=== PATIENT | male | born 2000 | race Caucasian/White ===

== ENCOUNTER → 2024-12-14 08:45 | Outpatient (BNV) | payer OTHER, SELFPAY | DX: F10.90 Alcohol use, unspecified, uncomplicated (principal); F41.1 Generalized anxiety disorder; F41.8 Other specified anxiety disorders; F32.2 Major depressive disorder, single episode, severe without psychotic features; F12.90 Cannabis use, unspecified, uncomplicated | CPT/HCPCS: 90792; 99499 ==

== ENCOUNTER 2025-01-17 14:17 | Outpatient (REF) | payer OTHER, SELFPAY ==
[2025-01-17 14:46] LABS: MANUAL DIFF FLAG NO
[2025-01-17 15:14] LABS: Basophils Percent Auto 0.6 % (0-2); Eosinophils Percent Auto 0.3 % (0-4); Hematocrit 46.5 % (42.0-52.0); Hemoglobin 15.6 g/dl (14.0-18.0); Imm Gran Abs Auto 0.02 X10*3/uL (0.00-0.03); Imm Gran Pct Auto 0.3 % (0.0-0.4); Lymphocytes Absolute Auto 1.6 X10*3/uL (1.2-4.9); Lymphocytes Percent Auto 24.3 % (20-40); Mean Corpuscular HGB Conc 33.5 g/dl (31.0-36.0); Mean Corpuscular Hemoglobin 29.1 pg (27.0-33.0); Mean Corpuscular Volume 86.8 fL (80.0-98.0); Mean Platelet Volume 10.3 fL (9.4-12.4); Monocytes Absolute Auto 0.4 X10*3/uL (0.1-1.2); Monocytes Percent Auto 5.5 % (2-11); Neutrophils Absolute Auto 4.6 x10*3/uL (2.0-8.3); Platelet Count 225 X10*3/uL (160-400); Red Blood Count 5.36 X10*6/uL (4.60-5.80); Red Cell Distribution Width 13.3 % (11.0-16.0); White Blood Count 6.7 X10*3/uL (4.8-10.8)
[2025-01-17 15:47] LABS: Estimated Average Glucose 94 mg/dL; Hemoglobin A1c % 4.9 % (<6.0); Total Hemoglobin (HGBA1C) 4028.1147 umol/L
[2025-01-17 16:05] LABS: Erythrocyte Sedimentation Rate 2 MM/HR (0-15)
[2025-01-17 16:17] LABS: Alanine Aminotransferase 11 U/L (0-40); Albumin Level 4.7 g/dL (3.5-5.0); Anion Gap 12 (12-20); Aspartate Amino Transferase 19 U/L (5-37); Bilirubin Total 0.6 mg/dL (0.0-1.0); Blood Urea Nitrogen 6 mg/dL (9-16); Calcium 10.1 mg/dL (8.4-10.2); Carbon Dioxide 27 mmol/L (22-29); Chloride 107 mmol/L (96-108); Cholesterol 185 mg/dL (<200); Estimated Glomerular Filt Rate > 60; Gamma Glutamyl Transpeptidase 38 U/L (11-51); Glucose Random 101 mg/dL (60-115); Iron 75 mcg/dL (45-160); Percent Iron Saturation 22 % (15-50); Sodium 142 mmol/L (135-145); Total Iron Binding Capacity 348 mcg/dL (228-428); Total Protein 7.8 g/dL (6.5-8.0); Unsaturated Iron Binding 273 ug/dL
[2025-01-17 16:43] LABS: Thyroid Stimulating Hormone 1.32 uIU/mL (0.32-4.0); Vitamin D 25-OH Total 27.7 ng/mL (>30)
--- OUTSIDE RECORDS SUMMARY | 2025-01-17 17:33 | XMS_ITS ---
Author Organization [facility] Address [address] [place] [address] Care Team Providers Care Cam Maker Name Role Phone Ayanna Yang Primary Care Provider REASON FOR VISIT No Show List Encounters Encounter Location Date Provider Diagnosis [facility] [address] [place] [address] 10/26/2024 Ayanna Yang Plan Of Treatment No Information Progress Notes * Valeriy HINTON LDOB:[birth year] (24 yo M)Acc No.[id number]:10/26/2024 Patient:?Valeriy HINTON :2000???Age:24 Y???Sex:Male Address:[address], [address], [place], [address] * * Date:?
--- OUTSIDE RECORDS SUMMARY | 2025-01-17 17:33 | XMS_ITS | Encounter Summary ---
Author Organization [facility] Address [address] [place] [phone] Phone Care Team Providers Care Coat Hanger Shaper Machine Operator Name Role Phone Aleks Florence MD Primary Care Provider [phone] Reason for Visit * Reason Comments Med Refill Encounter Details Date Type Department Care Team (Late st Contact Info) Description 04/10/2021 Refill [facility] [place] [address] [place] [address] Aleks Florence MD [address] [place] [address] Adolescent depression; Anxiety Social History Tobacco Use Types Packs/Day Years Used Date Smoking Tobacco: Some Days Smokeless Tobacco: Current Comments:chew Alcohol Use Standard Drinks/Week Comments Yes 0 (1 standard drink = 0.6 oz pure alcohol) Drinks about once every two weeks. Hunger/Food Answer Date Recorded In the last 12 months, did y ou or your family ever eat less than you felt you should because there wasn't enough money for food? No 09/10/2020 Stable Housing Answer Date Recorded Are you worried that in the next 2 months you may not have stable housing? No 09/10/2020 Transportation Concerns Answer Date Rec orded In the last 12 months, have you or your family ever had to go without healthcare because you didn't have a way to get there? No 09/10/2020 Hazards in Home Answer Date Recorded Think about the place you li ve. Do you have problems with any of the following? Pests (mice or roaches), mold, no/not working smoke detectors, water leaks, no window guards. No 2019 Financing Utilities Answer Date Recorde d In the last 12 months, has t he electric, gas, oil, or water company threatened to shut off your services in your home? No 09/10/2020 Safety at Home Answer Date Recorded Are you or your family worried about feeling saf e in your home? No 09/10/2020 Outside Support Answer Date Recorded Do you feel that you need mo re support from other people or programs to help you care for yourself or your family? No 09/10/2020 Understanding Health Concerns Answer Da te Recorded Do you need help understandi ng your or your child's healthcare needs (diagnosis, medications, plan, etc.)? No 09/10/2020 Financing Health Concerns Answer Date R ecorded In the last 12 months, was t here a time when your child needed to see a doctor or get medications or supplies but could not because of cost? No 09/10/2020 Missing School or Work Answer Date Bernard rded Did you or your child miss s chool or work because of a health problem that could have been avoided? No 09/10/2020 Sex and Gender Information Value Date Recorded Sex Assigned at Not on file Legal Sex Male 2:36 PM EST Gender Identity Not on file Sexual Orientation Not on file documented as of this encounter Plan of Treatment Not on file documented as of this encounter Visit Diagnoses Diagnosis Adolescent depression Depressive disorder, not elsewhere classified Anxiety Anxiety state, unspecified documented in this encounter Care Teams Coat Hanger Shaper Machine Operator Relationship Specialty Start Date End Date Aleks Florence MD [address] [place] [id number] PCP - General 12/30/16 05/27/21 documented as of this encounter
--- OUTSIDE RECORDS SUMMARY | 2025-01-17 17:34 | XMS_ITS | Clinical Summary ---
Author Organization [facility] Address [address] [place] [address] Phone Care Team Providers Care Shoe Associate Name Role Phone Unavailable Primary Care Provider Unavailabl e Allergies Active Allergy Reactions Criticality Noted Date Comments Environmental Itching,Abdominal pain 04/20/2020 Medications Melatonin 5 MG tablet Take 10 mg by mouth nightly as needed. Active FLUoxetine 20 MG tabletIndicatio ns:Adolescent depression,Anxi ety TAKE 1/2 TABLET BY MOUTH EVERY DAY FRO 7 DAYS THEN INCREASE TO 1 TABLET DAILY 30 tablet 1 03/19/2021 Active Active Problems Problem Noted Date Diagnosed Date Secondary hypertension 04/01/2021 Assessment & Plan (04/01/2021 7:00 AM EDT): I believe this is secondary to stress, Will recheck in 2 weeks Tendonitis 02/25/2021 Overview (02/25/2021): Right leg Assessment & Plan (02/25/2021 2:37 PM EDT): Will start PT Abdominal wall pain in left lower quadrant 12/27 Assessment & Plan (12/27/2020 1:57 PM EST): Secondary to muscular strain. Can observe for now Sleep disturbance 11/22/2020 Assessment & Plan (02/25/2021 2:35 PM EDT): trazadone did not help. I think he needs treatment for depression and then we can work on this problem. Assessment & Plan (12/27/2020 1:58 PM EST): He has improved with trazadone but still looking for more help. Will increase to 100 mg f/u in 2mo Assessment & Plan (11/22/2020 2:34 PM EST): He is using MJ to get to sleep has tried melatonin. Discussed sleep hygiene. He has the tendency to have depression so will try trazadone. F/u in 1 mo Abnormal EKG 11/22/2020 Assessment & Plan (02/25/2021 2:34 PM EDT): He has an appointment with cardiology Assessment & Plan (12/27/2020 1:57 PM EST): He will be seeing a hydraulic blocker Assessment & Plan (11/22/2020 2:36 PM EST): T wave changes in V3 and IRBB. His chest pain was likely not related. 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 Will have cardiology eval Marijuana abuse 09/10/2020 Assessment & Plan (04/01/2021 6:56 AM EDT): I am still concerned that this is a problem but he is not interested in pursuing it at this time Assessment & Plan (12/27/2020 2:00 PM EST): He is not interested in reducing at this time. Assessment & Plan (11/22/2020 2:34 PM EST): We had a long discussion about stopping and weaning and he also is addicted to nicotine. Assessment & Plan (09/10/2020 5:31 PM EST): I have expressed my concern and strong recommendation to cut down on MJ use and also some nicotine. He is a daily user. I discussed different ways to reduce his intake. He will return for a conference and we will consider SSRI tx. Total visit time 20 minutes, of which greater than 50% was spent in counseling. Anxiety 07/03/2019 Assessment & Plan (03/29/2021 2:51 PM EDT): Worsening anxiety and depression. He relates this to starting the prozac. He has had some suicidal thoughts. We will have a BH suicide risk. We will decrease prozac to 10 mg for a week and then d/c . D/u in 2 weeks and see how is and then consider another medication although he is not interested in starting another medication Assessment & Plan (02/25/2021 2:38 PM EDT): SHAUNA 12 He has worries about the future. Assessment & Plan (09/10/2020 5:28 PM EST): Anxiety is improved since last yr and SHAUNA 7 is 10 which is lower but still having signs of some anxiety Assessment & Plan (04/20/2020 3:01 PM EDT): Local Behavioral Health Agencies include: [employer] ([facility], [place], [place]) --www.csoinc.org [facility] [phone] ([facility], [place]) --www.[email or web address].org [facility] ([facility], [facility]). --www.chd.org *Please also try visiting [email or web address].[email or web address] for further names of therapists or make an appointment with the [facility] Behavioral Health Team Assessment & Plan (10/28/2019 11:59 AM EST): Much improved. No tx indicated. Discussed options Assessment & Plan (07/04/2019 11:58 AM EDT): Discussed with Verona Bowles who agrees with our plan to con't with therapy but no medication indicated at this time Assessment & Plan (07/03/2019 4:27 PM EDT): Symptoms of anxiety and panic are the main feature of his problems today. Likely exacerbated by upcoming transitions and moving to [place] For the year. He also has some co morbidity with sleeping difficulties and MJ substance abuse. I don't see any physical cause for his symptoms. He is in a good relationship with Verona Bowles. Since hs is leaving soon I did not think it was a good idea to start an SSRI. I am also concerned about a strong FH of bipolar and with the suddenness of these symptoms we have to keep that in mind. We discussed therapy, sleep modifications, melatonin and I will discuss with Verona Bowles if he agrees with my assessment. I would center tx on therapy for now. His SHAUNA was sig. elevated Spent 60 mins with counseling and coordination of care Adolescent depression 04/12/2018 Overview (04/20/2020): Was seeing Martha Shirley 2017, Verona Bowles 2018 Also with use of EtOH and MJ. No therapist in 2019 Assessment & Plan (04/01/2021 6:59 AM EDT): Hi screening are all positive and he is still feeling depressed and feels that the prozac has worsened his symptoms. I am not sure if this is medication related or more likely related to increased stressors in his life. I am concerned because of his positive answers to ASQ. I have had him evaluated by for his suicidal risk. Aubrey, his therapist , has evaluated him and felt to be safe at this time. We will wean the prozac. F/u in 2 weeks and consider different medication options. SHAUNA 7, PHQ 9 and ASQ all reviewed and elevated Assessment & Plan (02/25/2021 2:38 PM EDT): Ongoing depressive symptoms. Anhedonia , sleep appetite and even some mood swings. No suicidal thoughts. Discussed different options. He is interested in starting a medication. Discussed prozac since him mom had a good response. Will start at 10 mg for a week, increasing to 20 mg PHQ 9 elevated Starting an SSRI medication: ?? This medication is not addictive. ?? We will use the lowest effective dose by starting low and increasing slowly. ?? The FDA has found a very small risk of suicidal thoughts for this type of medication when used for treating anxiety, but the benefits of the medication are believed to strongly outweigh the risks if we monitor closely. ?? Other side effects seen most commonly are nausea, diarrhea, headache and trouble sleeping. These are mild and go away after a few days. ?? If any concerning things arise while taking this medication, be sure to call the office and we'll decide what to do. Assessment & Plan (12/27/2020 2:01 PM EST): He does have some depression and PHQ =10 He has been seeing a therapist through [facility] and he felt it was helping but the therapist stopped the tx. He is interested in some short term therapy. Will refer to Assessment & Plan (09/10/2020 5:30 PM EST): He is having clear depressive symptoms. No suicidal thoughts. Is in therapy and looking for more help. Discussed the options and he will set up a conference to discuss starting an SSRI Assessment & Plan (06/17/2019 11:18 AM EDT): Seeing Verona Band and doing better. Discussed reducing MJ use Resolved Problems Problem Noted Date Diagnosed Date Resolved Date Overdose of trazodone 11/22/20202020 Back strain 10/28/2019 09/10/2020 Assessment & Plan (10/28/2019 12:00 PM EST): Mayi spinal muscular pain. Tx with exercises. Rest and discussed sleep positioning. Immunizations Immunization Administration Dates Next Due DTaP 04/29/2006, 3,2001,10/05,2001 H1N1 10/15/2009,09/11/2009 HPV Vaccine 9 Valent 06/17/2019,04/12/2018,10/07 Hep A, Adult 09/10/2020 Hep A, ped/adol 06/17/2019 Hep B, ped/adol 2001,2001,2001 Hib (PRP-T) 11/22/2002, 2,2001,07/27 IPV 04/29/2006, 2,2001,07/27,2001 Influenza, injectable, MDCK, preservative free, quadrivalent 10/07/2016 Influenza, injectable, quadr ivalent, preservative free 09/10/2020,09/20/2018,12/06/2017,11/10 Influenza, injectable, trivalent 09/15/2005,08/10,10/25/2003 Influenza, intranasal, quadrivalent 10/06/2015 Influenza, intranasal, trivalent 09/28/2012 MMR 04/29/2006,11/22/2002 Meningococcal Conj (Menactra) MCV4P 06/17/2019,0 05/17/2013 Pneumococcal Conjugate 05/23/2003,2001,2001,08/19 Tdap 05/17/2013 Varicella 07/18/2010,08/25/2002 Family History Relation Name Status Comments Mother Alive Other Alive Social History Tobacco Use Types Packs/Day Years [...] on file Sexual Orientation Not on file Last Filed Vital Signs Vital Sign Reading Time Taken Comments Blood Pressure 130/80 03/29/2021 3:13 PM EDT Pulse 87 02/25/2021 2:10 PM EDT Temperature 36.6 ??C (97.8 ??F) 02/25/2021 2:10 PM ED T Respiratory Rate - - Oxygen Saturation 97% 02/25/2021 2:10 PM EDT Inhaled Oxygen Concentration - - Weight 61.4 kg (135 lb 6.4 oz) 03/29/2021 2:23 P M EDT Height 183.5 cm (6' 0.25 ) 02/25/2021 2:10 PM ED T Body Mass Index 18.24 02/25/2021 2:10 PM EDT Plan of Treatment Health Maintenance Due Date Last Done Comments Consider Men B Vaccine (1 of 2 - Bexsero 2-dose series) 2017 Men B Vaccine (1 of 2 - Standard) 2017 DTaP,Tdap,and Td Vaccines (7 - Td or Tdap) 05/17/2023 05/17/2013, 04/29/2006, 11/22/2002, Additional history exists Influenza Vaccines (#1) 2024 09/10/20 20, 09/20/2018, 12/06/2017, Additional history exists COVID-19 Vaccine ( - 2023-2 5 season) 2024 02/17/2021 Hepatitis B Vaccines Completed 2001, 2001, 2001 HIB Vaccines Completed 11/22/2002, 11/10, 2001, Additional history exists Pneumococcal Vaccine Completed 05/23/2003, 2001, 2001, Additional history exists IPV Vaccines Completed 04/29/2006, 08/09, 2001, Additional history exists MMR Vaccines Completed 04/29/2006, 11/22/2002 Varicella Vaccines Completed 07/18/2010, 08/25/2002 HPV Vaccines Completed 06/17/2019, 02/2018, 10/07/2016 Meningococcal Vaccine Completed 06/17/2019, 013 Hepatitis A Vaccines Completed 09/10/2020, 06/17/20 19
--- OUTSIDE RECORDS SUMMARY | 2025-01-17 17:34 | XMS_ITS | Encounter Summary ---
Author Organization [facility] Address [address] [place] [address] Phone Care Team Providers Care Lanolin Plant Operator Name Role Phone Aleks Florence MD Primary Care Provider [phone] Encounter Details Date Type Department Care Team (Late st Contact Info) Description 06/17/2017 Conversion Encounter [facility] - [address], [address] [place] [address] Aleks Florence MD [address] [place] [address] Social History Tobacco Use Types Packs/Day Years Used Date Smoking Tobacco: Never Assessed Sex and Gender Information Value Date Recorded Sex Assigned at Not on file Legal Sex Male 2:36 PM EST Gender Identity Not on file Sexual Orientation Not on file documented as of this encounter Plan of Treatment Not on file documented as of this encounter Visit Diagnoses Not on filedocumented in this encounter Care Teams Lanolin Plant Operator Relationship Specialty Start Date End Date Aleks Florence MD [address] [place] [address] PCP - General 12/30/16 05/27/21 documented as of this encounter
--- OUTSIDE RECORDS SUMMARY | 2025-01-17 17:34 | XMS_ITS | Patient Health Record ---
Author Organization [facility] Address [address] [place] [address] Care Team Providers Care Animal Herder Name Role Phone Debbie Quintana Unavailable [phone] Reason For Referral No Information Plan Of Treatment No Information Insurance Providers Payer Name Payer Address Payer Phone Subscriber Number Group Number Insured Name Patient Relationship to Insured Coverage Start Date Coverage End Date [employer] [address] [place] [phone] [id number] ANDRIA HINTON Self - patient is the insured
--- OUTSIDE RECORDS SUMMARY | 2025-01-17 17:34 | XMS_ITS | Patient Health Record ---
Author Organization [facility] Address [address] [place] [phone] Care Team Providers Care Well Drill Operator Cable Tool Name Role Phone Ayanna Yang Primary Care Provider Reason For Referral No Information Encounters Encounter Location Date Provider Diagnosis [facility] [address] [place] [address] 10/26/2024 Ayanna Yang Plan Of Treatment No Information Insurance Providers Payer Name Payer Address Payer Phone Subscriber Number Group Number Insured Name Patient Relationship to Insured Coverage Start Date Coverage End Date [facility] [address] [place] [address] [id number] Valeriy Esteves Self - patient is the insured
--- OUTSIDE RECORDS SUMMARY | 2025-01-17 17:34 | XMS_ITS ---
Author Organization [facility] Address [address] [place] [phone] Care Team Providers Care Tank Tester Name Role Phone Ayanna Yang Primary Care Provider [phone] REASON FOR VISIT PACKAGING SPECIALIST Encounters Encounter Location Date Provider Diagnosis [facility] [address] [place] [phone] 09/20/2024 Ayanna Yang Plan Of Treatment No Information Progress Notes * Valeriy ESTEVES LDOB:[birth year] (24 yo M)Acc No.[id number]:09/20/2024 Progress Notes Patient:?Valeriy ESTEVES Provider:?Ayanna Yang :2000???Age:24 Y???Sex:Male Frankie e:09/20/2024 Address:[address] [facility] Subjective: * Chief Complaints: * ???1. 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 * Medical History:? Objective: * Vitals:? Assessment: Plan: * Treatment: * Procedure Codes:?Ns No Show/ NO charge * * Sign off status: Completed Visit Status:?N/S (No-Show) true * Provider:Johnathon Yang Date:? 4 Generated for Charles baxter/Willie/eTransmitting on:?01/17/2025 05:33 PM EDT
[2025-01-17 18:32] LABS: Alkaline Phosphatase 53 U/L (39-117)
[2025-01-17 21:07] LABS: Vitamin B12 246 pg/mL (200-900)
[2025-01-18 18:39] LABS: Homocysteine 31.3 umol/L (<11.4)
[2025-01-20 01:43] LABS: Zinc 69 mcg/dL (60-130)
[2025-01-26 15:19] LABS: Vitamin B1 10 nmol/L (8-30)
== END 2025-01-17 14:18 | disposition home or self-care (01) ==
LOC: HO.LAB 14:17
PROVIDERS: Visit Provider Psychiatry & Neurology Psychiatry
DX: F32.2 Major depressive disorder, single episode, severe without psychotic features (principal); F41.1 Generalized anxiety disorder; F10.90 Alcohol use, unspecified, uncomplicated; Z13.6 Encounter for screening for cardiovascular disorders; Z13.1 Encounter for screening for diabetes mellitus
CPT/HCPCS: 36415; 80053; 82306; 82465; 82607; 82746; 82977; 83036; 83090; 83540; 83735; 84425; 84439; 84443; 84630; 85025; 85652

== ENCOUNTER → 2025-01-20 13:48 | Outpatient (REF) | payer OTHER, SELFPAY ==
--- NOTE | 2025-01-20 13:51 | ECG_ITS ---
Test Reason : r/o qt prolongation Blood Pressure : */* mmHG Vent. Rate : 63 BPM Atrial Rate : 63 BPM P-R Int : 138 ms QRS Dur : 100 ms QT Int : 422 ms P-R-T Axes : 68 95 36 degrees QTcB Int : 431 ms Normal sinus rhythm Rightward axis Incomplete right bundle branch block Borderline ECG No previous ECGs available Referred By: Allie Langley Electronically Signed By: LETTY DARLING
--- OUTSIDE RECORDS SUMMARY | 2025-01-20 15:32 | XMS_ITS ---
Author Organization [facility] Address [address] [place] [id number] Care Team Providers Care House Moving Supervisor Name Role Phone Ayanna Yang Primary Care Provider REASON FOR VISIT No Show List Encounters Encounter Location Date Provider Diagnosis [facility] [address] [place] [address] 10/26/2024 Ayanna Yang Plan Of Treatment No Information Progress Notes * Valeriy HINTON LDOB:[birth year] (24 yo M)Acc No.[id number]:10/26/2024 Patient:?Valeriy HINTON :2000???Age:24 Y???Sex:Male Address:[address], [address], [place], [address] * * Date:?
--- OUTSIDE RECORDS SUMMARY | 2025-01-20 15:33 | XMS_ITS ---
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 * Medical History:? Objective: * Vitals:? Assessment: Plan: * Treatment: * Procedure Codes:?Ns No Show/ NO charge * * Sign off status: Completed Visit Status:?N/S (No-Show) true * Provider:Johnathon Yang Date:? 4 Generated for Charles baxter/Willie/eTransmitting on:?01/20/2025 03:32 PM EDT
--- OUTSIDE RECORDS SUMMARY | 2025-01-20 15:33 | XMS_ITS | Clinical Summary ---
Author Organization [facility] Address [address] [place] [address] Phone Care Team Providers Care Ignition Mechanic Name Role Phone Unavailable Primary Care Provider [...] PM EST): He will be seeing a acoustic sensor operator Assessment & Plan (11/22/2020 2:36 PM EST): [...] PM EDT): Local Behavioral Health Agencies include: CHEMISTRY LECTURER ([facility] [place], [place]) --www.csoinc.org [facility] [phone] ([facility] [place]) --www.servicenet.org [facility]D ([facility]). --www.chd.org *Please also try visiting www.psychologytoday.GloNav for further names of therapists or make an appointment with the [facility] Behavioral Health Team Assessment & Plan (10/28/2019 [...] He has been seeing a therapist through [facility] and he felt it was helping but [...] Health Maintenance Due Date Last Done Comments Men B Vaccine (1 of 2 - Standard) 2017 DTaP,Tdap,and Td Vaccines (7 - Td or Tdap) 05/17/2023 05/17/2013, 04/29/2006, 11/22/2002, Additional history exists Influenza Vaccines (#1) 2024 09/10/20, 09/20/2018, 12/06/2017, Additional history exists COVID-19 Vaccine (2 - 2023-2 5 season) 2024 02/17/2021 Hepatitis [...]
--- OUTSIDE RECORDS SUMMARY | 2025-01-20 15:33 | XMS_ITS | Patient Health Record ---
Author Organization [facility] Address [address] [place] [phone] Care Team Providers Care Fitter Type Bar And Segment Name Role Phone Ayanna Yang Primary Care Provider [phone] Reason For Referral No Information Encounters Encounter Location Date Provider Diagnosis [facility] [address] [place] [address] 10/26/2024 Ayanna Yang Plan Of Treatment No Information Insurance Providers Payer Name Payer Address Payer Phone Subscriber Number Group Number Insured Name Patient Relationship to Insured Coverage Start Date [facility]age End Date [facility] [address] [place] [address] [id number] Valeriy Esteves Self - patient is the insured
--- OUTSIDE RECORDS SUMMARY | 2025-01-20 15:33 | XMS_ITS | Encounter Summary ---
Author Organization [facility] Address [address] [place] [address] Phone Care Team Providers Care Wire Mesh Filter Fabricator Name Role Phone Aleks Florence MD Primary Care Provider [phone] Reason for Visit * Reason Comments Med Refill Encounter Details Date Type Department Care Team (Late st Contact Info) Description 04/10/2021 Refill [facility] - [place] [address] [place] [address] Aleks Florence MD [address] [place] [address] Adolescent depression; Anxiety Social History Tobacco Use [...] unspecified documented in this encounter Care Teams Wire Mesh Filter Fabricator Relationship Specialty Start Date End Date Aleks Florence MD [address] [place] [address] PCP - General 12/30/16 05/27/21 documented as of this encounter
--- OUTSIDE RECORDS SUMMARY | 2025-01-20 15:33 | XMS_ITS | Encounter Summary ---
Author Organization [facility] Address [address] [place] [address] Phone Care Team Providers Care Weight Yardage Checker Name Role Phone Aleks Florence MD Primary Care Provider [phone] Encounter Details Date Type Department Care Team (Late st Contact Info) Description 06/17/2017 Conversion Encounter [facility] - [address], [address] [place] [address] Aleks Florence MD [address] [place] [address] Social History Tobacco Use Types Packs/Day Years [...] on filedocumented in this encounter Care Teams Weight Yardage Checker Relationship Specialty Start Date End Date Aleks Florence MD [address] [place] [address] PCP - General 12/30/16 05/27/21 documented as of this encounter
--- OUTSIDE RECORDS SUMMARY | 2025-01-20 15:33 | XMS_ITS | Patient Health Record ---
Author Organization [facility] Address [address] [place] [address] Care Team Providers Care Bread Stacker Name Role Phone Debbie Quintana Unavailable [phone] Reason For Referral No Information Plan Of Treatment No Information Insurance Providers Payer Name Payer Address Payer Phone Subscriber Number Group Number Insured Name Patient Relationship to Insured Coverage Start Date Coverage End Date [employer] [address] [place] [phone] [id number] ANDRIA HINTON Self - patient is the insured
== END ==
LOC: HO.CARD 13:48
PROVIDERS: Visit Provider Psychiatry & Neurology Psychiatry
DX: F39 Unspecified mood [affective] disorder (principal)
CPT/HCPCS: 93005

== ENCOUNTER → 2025-01-20 13:51 | Outpatient (BNV) | payer OTHER, SELFPAY | PROVIDERS: Visit Provider Internal Medicine | DX: I45.10 Unspecified right bundle-branch block (principal) | CPT/HCPCS: 93010 ==

== ENCOUNTER 2025-01-27 10:30 | Outpatient (RCR) | payer OTHER, SELFPAY ==
[2024-12-14 13:12] VITALS: BMI 23.0
[2024-12-14 13:13] VITALS: BP 122/77; PULSE 78; TEMP 36.9
--- NOTE | 2024-12-15 15:58 | HO.PHP ---
Client's case has been opened and reviewed in team.
--- NOTE | 2024-12-15 22:31 | PM.EVENT ---
Event Note Date of Service: 12/15/24 Event Note: Patient called out from program today although was scheduled to be seen. Time Spent With Patient Time: Total time managing care of this patient today ____ minutes.
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
[2024-12-19 06:27] LABS: Amphetamine Screen Urine Not Detected (Not Detect); Barbiturates, Urine Not Detected (Not Detect); Benzodiazepines Screen Urine Not Detected (Not Detect); Buprenorphine Scr Not Detected (Not Detect); Cannabinoid Screen Urine POSITIVE (Not Detect); Cocaine Screen Urine Not Detected (Not Detect); Fentanyl, urine Not Detected (Not Detect); Methadone Screen, Urine Not Detected (Not Detect); Opiate Screen Urine Not Detected (Not Detect); Oxycodone Screen Urine Not Detected (Not Detect); Phencyclidine Screen Urine Not Detected (Not Detect)
--- NOTE | 2024-12-20 07:56 | PC.NURSE ---
Patient reports he has plans to move to [place] in the next 4 months. He does not have a PCP at this time and does not want help from staff at this time obtaining one d/t his future plans of living out of the state. Patient educated about urgent care providers if needed.
--- NOTE | 2024-12-20 22:28 | P.PNPSP_ITS ---
Subjective Subjective Date of Service: 12/20/24 Reason For Visit: alcohol, depression, anxiety Interim History: Patient seen for follow-up. Reports continued difficulties over weekend. Mood is still very depressed, maybe a little worse, sometimes I can distract myself but it's getting more difficult. It's hard to stop the shaking and crying...'forgiveness of the self' has been hard. He denies any SI but occasioanally feels demoralized. He continues with cravings, but denies any int erest in drinking. He also denies any alcohol use. Continues with regular but modest cannabis use. Continues on his medications mirtazapine 45 mg, Seroquel 200 mg as well as 50 mg doses of prn Seroquel twice this time I can say I don't think the Seroquel is working as much as it did at first . Reports having a difficult time falling asleep/ falling back to sleep. They generally has bben No change in mood from our last visit. He seems more interested in medication options (and we started to discuss options from a depression stand point with mention of bupropion and expresses less interest in exploring options for AUD like NTX or betsy or acomprosate), nonetheless patient declines starting any medications. He shares that he feels conflicted about who should be managing his medications. I assure him that usually OP provider will defer med management to program provider during their stay at [facility] and upon discharge he is sent back to provider with updated changes. He tells me he is meeting with his outpatient psych provider later today. He is encouraged to discuss this with outpatient. Medication Compliance: Yes Side effects from medications: Yes (tiredness, sedation) Attending Groups: Yes Review of Systems Acute medical concerns: No Mental Status Exam Mental Status Exam Narrative: Alert, oriented, in no acute distress. Downcast, appears tired. Eye contact intermittent. Mood depressed, affect blunted. Speech normal. Thought process linear, coherent. Thought content related to stressors, feeling demoralized, tired, +transient hopelessness, denies SI or HI. No paranoia or delusional content elicited. No evidence of psychosis. Insight and judgment - fair but adequate. Diagnostics Vital Signs (24Hr): BMI result Body Mass Index 23.0 Labs Labs: Laboratory Results - last 48 hr 12/16/24 11:41 Urine Opiates Screen Not Detected Ur Buprenorphine Scrn Not Detected Ur Oxycodone Screen Not Detected Urine Methadone Screen Not Detected Urine Fentanyl Screen Not Detected Ur Barbiturates Screen Not Detected Ur Phencyclidine Scrn Not Detected Ur Amphetamines Screen Not Detected U Benzodiazepines Scrn Not Detected Urine Cocaine Screen Not Detected U Marijuana (THC) Screen POSITIVE H Assessment & Plan Assessment & Plan (1) Alcohol use disorder: Status: Acute Code(s): F10.90 - Alcohol use, unspecified, uncomplicated (2) SHAUNA (generalized anxiety disorder): Status: Acute Code(s): F41.1 - Generalized anxiety disorder (3) MDD (major depressive disorder), severe: Status: Acute Code(s): F32.2 - Major depressive disorder, single episode, severe without psychotic features (4) Cannabis use disorder: Status: Acute Code(s): F12.90 - Cannabis use, unspecified, uncomplicated Plan 24 yo male w long standing anxiety, social anxiety, ADHD, poor motivation, low self esteem, self-medicating with alcohol since teens, presents with worsening depression, poor sleep and self harming in context of break-up and end of college. He is 3 credits short of completing his degree, but at this time he is staying at home and prioritizing his , seeking supports and recently started in outpatient pharmacological treatment. Seroquel helping with sleep, acute agitation, but no considerable improvements in depression, relays 10+ lbs weigh gain in past 3-6 weeks since stopping drinking and starting on Seroquel and Remeron. He expressed disinterest in starting an antidepressant due to poor experience in the past w SSRI, plus cited concerns for side effects (weight gain, sexual dysfxn). We discussed Wellbutrin which may help with depression/low energy/motivation and apathy, as well as ADHD issues/racing thoughts, and Intuniv to target anxiety, ADHD. To mitigate weight gain, fatigue, may consider alternatives - substituting trazodone or gabapentin in place of some of Seroquel. Consider lowering dose of mirtazapine to help with sleep. We also discussed whether naltrexone may have Patient agrees with plan, but continues to be conflicted about who should medication changes. He was encouraged to speak with OP provider since patient Certification I certify that partial hospital treatment is medically necessary due to the symptoms and problems resulting from the patient's mental illness and the failure to treat the patient at the partial hospital level of care would likely result in the patient requiring inpatient psychiatric care which could not be prevented at a less intensive level of care. Total time managing care of this patient today ____ minutes. Discharge Plan Discharge Attending provider: Allie Langley Medications: No Action quetiapine [Seroquel] 100 mg Tablet 200 mg PO BEDTIME Rx Instructions: Take 2 tabs at bedtime. mirtazapine 45 mg Tablet 45 mg PO BEDTIME quetiapine [Seroquel] 50 mg Tablet 50 mg PO BID PRN (Reason: Anxiety) Print Language: Setswana Telehealth Telehealth Telehealth Platform: Other (please specify) (DokD[employer]) Location of provider rendering services: other (private office) Location of patient: other ([facility]) Patient Identification confirmed using: Name, : Yes Telehealth method: video Patient verbally consented to treatment: Yes
--- NOTE | 2024-12-23 23:58 | P.PNPSP_ITS ---
Subjective Subjective Date of Service: 12/23/24 Reason For Visit: alcohol, depression, anxiety Interim History: No changes in presentation. Patient contiues to be slow, dragging, he was quite tearful, sobbing and ruminativeexpressing regretful about his past behaviors. I've been so insecure my whole life. I hate myself... I hurt myself (punching myself in the head). I traumatized her and I traumatized myself . Ruminative, little future orientation. Feeling profound hopeless, transient thoughts of giving up (mostly when he is home or alone). He denies any thoughts or plans to harm himself, but has had a few episodes of punching himself in the head when he is very upset and frustrated with himself, mostly when he ruminates on the past. Smokes cannabis on a daily basis. Denies any alcohol use in interim, last use was October. Self care is inconsistent. Appetite is low, mostly eats at night with smoking weed. Medications continue being managed by outpatient provider (who has been meeting with patient on a weekly basis). They will be meeting today. Mirtazapine is at 45 mg and Seroquel was increased from 200 mg/ to 300 mg/d since admission. He does not feel it has made much of a difference, but has been helpful when he started in terms of quieting some of his impulses to hit himself. I offer reaching out to his provider to see if I can be of help, or to see if he would be willing to have me take over prescribing while patient is in program seeing as I have the advantage of seeing in person and meeting with patient day to day. Patient says he will discuss this with his provider, but indicates that last week provider seemed inclined to continue managing patient's medications himself. Patient relays feeling conflicted about the situation, and I assure him I am only looking to be a support for both himself and Dr. Scruggs in whatever capacity that works. I reassure him there will be no conflict, and that I would support whatever he and Dr. Scruggs decide as I understand he will be continuing to work with his provider beyond his time at [facility] and I aim to preserve their alliance. Medication Compliance: Yes Side effects from medications: Yes Attending Groups: Yes Review of Systems Acute medical concerns: No Mental Status Exam Mental Status Exam Narrative: Alert, oriented, in no acute distress. Downcast, appears tired, tearful. Eye contact intermittent. Mood depressed, affect sad, dysphoric. Speech normal. Thought process linear, coherent. Thought content related to stressors, feeling demoralized, tired, +transient hopelessness, impulsive self harm or hitting himself when emotionally dysregulated, denies SI or HI. No paranoia or delusional content elicited. No evidence of psychosis. Insight and judgment - fair but adequate. Diagnostics Vital Signs (24Hr): BMI result Body Mass Index 23.0 Assessment & Plan Assessment & Plan (1) Alcohol use disorder: Status: Acute Code(s): F10.90 - Alcohol use, unspecified, uncomplicated (2) SHAUNA (generalized anxiety disorder): Status: Acute Code(s): F41.1 - Generalized anxiety disorder (3) MDD (major depressive disorder), severe: Status: Acute Code(s): F32.2 - Major depressive disorder, single episode, severe without psychotic features (4) Cannabis use disorder: Status: Acute Code(s): F12.90 - Cannabis use, unspecified, uncomplicated Plan 24 yo male w long standing anxiety, social anxiety, ADHD, poor motivation, low self esteem, self-medicating with alcohol since teens, presents with worsening depression, poor sleep and self harming in context of break-up and end of college. He is 3 credits short of completing his degree, but at this time he is staying at home and prioritizing his , seeking supports and recently started in outpatient pharmacological treatment. Seroquel helping with sleep, acute agitation, but no considerable improvements in depression, relays 10+ lbs weigh gain in past 3-6 weeks since stopping drinking and starting on Seroquel and Remeron. He expressed disinterest in starting an antidepressant due to poor experience in the past w SSRI, plus cited concerns for side effects (weight gain, sexual dysfxn). We discussed Wellbutrin which may help with depression/low energy/motivation and apathy, as well as ADHD issues/racing thoughts, and Intuniv to target anxiety, ADHD. To mitigate weight gain, fatigue, may consider alternatives - substituting trazodone or gabapentin in place of some of Seroquel. Consider lowering dose of mirtazapine to help with sleep. We also discussed whether naltrexone may be help with abstaining from alcohol. Patient agrees with plan, but continues to be conflicted about who should medication changes. He was encouraged to speak with OP provider PLAN: Medications continue to be actively managed by outpatient provider (who has been meeting with patient on a weekly basis). Patient agrees at this point, it would be more practical for medications to be managed here at [facility] for the remainder of his stay. Will reach out to Dr. Scruggs today to discuss patient's course of treatment, and suggest that I assume prescribing and management of medications given that patient is engaged in [facility] at this time. Patient agrees with plan and we left a VMmioout to Dr. Scruggs. [facility] I have refrained from interfering with their treatment plan, however given that patient is currently engaged in our program for the past 2 weeks. Patient educated on: diagnosis, medication risk/benefits and substance abuse Informed Consent: understands Reason for contiued partial hosp. stay Substantial Risk for: harm to self, inability to function, rapid decompensation and med/psych decompensation Certification I certify that partial hospital treatment is medically necessary due to the symptoms and problems resulting from the patient's mental illness and the failure to treat the patient at the partial hospital level of care would likely result in the patient requiring inpatient psychiatric care which could not be prevented at a less intensive level of care. Total time managing care of this patient today __30__ minutes. Discharge Plan Discharge Attending provider: Allie Langley Additional Instructions: If you change your mind and plan to stay in the area call [facility] for a new PCP appointment. Office # [phone]. They also have a walk in clinic inside the [facility]. Location [address] [facility]. [id number]. Medications: New bupropion HCl 100 mg tablet sustained-release 12 hr 100 mg PO QAM Qty: 14 0RF guanfacine 1 mg tablet extended release 24 hr 1 mg PO DAILY Qty: 14 0RF quetiapine 50 mg tablet extended release 24 hr 50 mg PO DAILY Qty: 30 0RF citalopram 20 mg tablet See Rx Instructions .ROUTE .COMPLEX Qty: 30 0RF Rx Instructions: start 1/2 tablet tablet po daily at bedtime for 2-4 days, then increase to 1 tablet po daily at bedtime Continued quetiapine [Seroquel] 50 mg Tablet 50 mg PO BID PRN (Reason: Anxiety) quetiapine [Seroquel] 100 mg Tablet 200 mg PO BEDTIME Qty: 30 0RF Rx Instructions: Take 2 tabs at bedtime. Changed mirtazapine 45 mg Tablet 30 mg PO BEDTIME Qty: 20 0RF Stand Alone Forms: Patient Portal Discharge page Print Language: [place]ican
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
--- NOTE | 2024-12-29 23:52 | P.PNPSP_ITS ---
Subjective Subjective Date of Service: 12/29/24 Reason For Visit: alcohol, depression, anxiety Interim History: Patient continues to present as tearful, dysphoric, despondent. His med provider has been meeting with patient every week to continue making medications, his dose of Seroquel is now at 400 mg/d (50/50/300), mirtazapine continues at 45 mg. There has been no appreciable improvement since starting program 2 weeks ago. He also reports experiencing considerable sedation from the 50 mg PRN but takes it nonetheless otherwise his anxiety is unmanageable. Smokes cannabis on a daily basis. Denies any alcohol use in interim, last use was October. Self care is inconsistent. Appetite is low, mostly eats at night with smoking weed. Continues to hit himself when he gets overemotional and upset. Low frustration tolerance and low motivation. I'm not taking care of the things I need to do. I'm pathetic . He and Dr. Huddleston are due to meet again this afternoon. Patient is open to me reaching out to Dr. Huddleston and is hoping we can work together. I have refrained from interfering with their treatment plan, however given that patient has been in our program for the past 2 weeks with little improvement. Patient agrees it would be more practical at this point, for medications to be managed here at [facility] for the remainder of his stay. We called and left a VM message for Dr. Huddleston requesting a callback to discuss patient's course of treatment, and suggest that I assume prescribing and management of medications given that patient is engaged in [facility] at this time. I spoke with patient later this afternoon who says Dr. Huddleston told him to increase his mirtazapine to 60 mg/d and continue Seroquel 400 mg/d and also add gabapentin 300 [address] said Dr. Huddleston said he would return my call sometime today. Medication Compliance: Yes Side effects from medications: No Attending Groups: Yes Review of Systems Acute medical concerns: No Mental Status Exam Mental Status Exam Narrative: Alert, oriented, in no acute distress. Downcast, appears tired, tearful. Eye contact intermittent. Mood depressed, affect sad, dysphoric. Speech normal. Thought process linear, coherent. Thought content related to stressors, feeling demoralized, tired, +transient hopelessness, denies SI or HI. No paranoia or delusional content elicited. No evidence of psychosis. Insight and judgment - fair but adequate. Diagnostics Vital Signs (24Hr): BMI result Body Mass Index 23.0 Assessment & Plan Assessment & Plan (1) Alcohol use disorder: Status: Acute Code(s): F10.90 - Alcohol use, unspecified, uncomplicated (2) SHAUNA (generalized anxiety disorder): Status: Acute Code(s): F41.1 - Generalized anxiety disorder (3) MDD (major depressive disorder), severe: Status: Acute Code(s): F32.2 - Major depressive disorder, single episode, severe without psychotic features (4) Cannabis use disorder: Status: Acute Code(s): F12.90 - Cannabis use, unspecified, uncomplicated Plan PLAN: Spoke with Dr. Ramon Huddleston this evening, to review patient treatment course. Outpatient provider continues to manage patient's mediation on a weekly basis so I have not interfered with their treatment however given that I am seeing patient on a near daily basis I suggest that it would be more practical for me to take over his care while he is in the program. We reviewed patient treatment history and coordinate care. Provider was not aware there was a dedicated med prescriber at [facility] and after our 30 min conversation he agreed to defer further medication management to this conventional mortgage underwriter for the duration of patient's stay at [facility], at which time he would be discharged back to outpt provider. I called patient later this evening, to relay that I was able to speak with his provider and we agreed on plan that I would cover his med management while he is at [facility]. We reviewed plan to start gabapentin 300 mg at only once daily around 5pm for now (not TID), to see if this is sedating before proceeding further. I also suggested we remain at mirtazapine 45 mg (instead of increasing dose to 60 mg), and will lower dose of Seroquel. for now will lower HS Seroquel from 300 mg to 200 mg qhs return mirtazapine to 45 mg continue Seroquel 50 mg BID PRN (reminded patient to only take as needed) start gabapentin 300 mg qd afternoon for now (hold off starting TID until we establish if this is tiring) plan to start guanfacine ER 1 mg qam tomorrow (Thu) will plan to start Wellbutrin SR 50 mg qam Thursday Patient educated on: diagnosis, medication risk/benefits and substance abuse Informed Consent: understands Reason for contiued partial hosp. stay Substantial Risk for: inability to function, rapid decompensation and med/psych decompensation Certification I certify that partial hospital treatment is medically necessary due to the symptoms and problems resulting from the patient's mental illness and the failure to treat the patient at the partial hospital level of care would likely result in the patient requiring inpatient psychiatric care which could not be prevented at a less intensive level of care. Total time managing care of this patient today __90__ minutes. Discharge Plan Discharge Attending provider: Allie Langley Additional Instructions: If you change your mind and plan to stay in the area call [facility] for a new PCP appointment. Office # [phone]. They also have a walk in clinic inside the [facility]. Location [address] [facility]. [id number]. Medications: New bupropion HCl 100 mg tablet sustained-release 12 hr 100 mg PO QAM Qty: 14 0RF guanfacine 1 mg tablet extended release 24 hr 1 mg PO DAILY Qty: 14 0RF quetiapine 50 mg tablet extended release 24 hr 50 mg PO DAILY Qty: 30 0RF citalopram 20 mg tablet See Rx Instructions .ROUTE .COMPLEX Qty: 30 0RF Rx Instructions: start 1/2 tablet tablet po daily at bedtime for 2-4 days, then increase to 1 tablet po daily at bedtime Continued quetiapine [Seroquel] 50 mg Tablet 50 mg PO BID PRN (Reason: Anxiety) quetiapine [Seroquel] 100 mg Tablet 200 mg PO BEDTIME Qty: 30 0RF Rx Instructions: Take 2 tabs at bedtime. Changed mirtazapine 45 mg Tablet 30 mg PO BEDTIME Qty: 20 0RF Stand Alone Forms: Patient Portal Discharge page Print Language: Slovenian
[2024-12-30 09:32] VITALS: BP 128/73; PULSE 92
--- NOTE | 2025-01-02 16:57 | HO.PHPPROGNO ---
Subjective Subjective Date of Service: 12/31/24 Reason For Visit: alcohol, depression, anxiety Diagnostics Vital Signs (24Hr): BMI result Body Mass Index 23.0 Assessment & Plan Certification I certify that partial hospital treatment is medically necessary due to the symptoms and problems resulting from the patient's mental illness and the failure to treat the patient at the partial hospital level of care would likely result in the patient requiring inpatient psychiatric care which could not be prevented at a less intensive level of care. Total time managing care of this patient today ____ minutes. Discharge Plan Discharge Attending provider: Allie Langley Medications: New bupropion HCl 100 mg tablet sustained-release 12 hr 100 mg PO QAM Qty: 14 0RF guanfacine 1 mg tablet extended release 24 hr 1 mg PO DAILY Qty: 14 0RF quetiapine 50 mg tablet extended release 24 hr 50 mg PO DAILY Qty: 30 0RF Continued mirtazapine 45 mg Tablet 45 mg PO BEDTIME quetiapine [Seroquel] 50 mg Tablet 50 mg PO BID PRN (Reason: Anxiety) quetiapine [Seroquel] 100 mg Tablet 200 mg PO BEDTIME Qty: 30 0RF Rx Instructions: Take 2 tabs at bedtime. Print Language: Cypriot
--- NOTE | 2025-01-02 16:59 | PM.EVENT ---
Event Note Date of Service: 01/05/25 Event Note: Checked in with patient who just had an argument with his father and was feeling really upset, and frustrated. He also sounded over-sedated, slow, and emotionally dysregulated. He was sobbing. He says usually he and his father get a long fine but feels his father is getting frustrated with him he says I don't do enough, that I am not taking care of myself, I'm not cleaning up or showering. And that I should be doing more . He says he doesn't disagree but that he just feels so miserable and depressed it's hard to do anything at all. Feeling very helpless, demoralized and hopelessness still there are thoughts of giving up on life but mostly as feeling like things will never get better and feeling stuck and asking himself what's the point but denies any thoughts of wishing he were or wanting to take steps to end his life. He notes that weekends are usually very difficult without the structure of the program. He ends up smoking all day and feeling more stuck and miserable. I think being at the program I do a little better, I may not feel better but at least I am trying to focus on moving forward, which is hard because I spend like 80% of the time ruminating on the past mistakes. On the weekends I am just fully dwelling on the past. Getting high helps for only a little while. But I think it ends up making my anxiety worse in the long run . He doesn't feel he can do anything about the weed consumption out of fear that he would relapse and he has been able to avoid alcohol for 2 months now. We review the option for [facility], which he appreciated the discussion and says he would be able to let me know if he needed that. Appetite is poor and I have encouraged him to try eat even small portions more regularly so that he can better tolerate his medicaitons and in order for them to work better. He is encouraged to get to sleep at a better hour. He start Wellbutrin and guanfacine yesterday AM, denies any adverse effects. He forgot to lower the doses of Seroquel and mitrazapine and gabapentin. I do believe he sounds overmedicated. He denies any alcohol use. I've asked that he get a pen and paper and write down these medication changes, mostly to return doses to where he was prior to . PLAN: continue Wellbutrin SR 100 mg qam continue guanfacine ER 1 mg qam hold Seroquel 50 mg BID switch from Seroquel (IR) 200 mg to XR 200 mg qhs return mirtazapine to 45 mg stop/hold gabapentin for now Time Spent With Patient Time: Total time managing care of this patient today __45__ minutes.
--- NOTE | 2025-01-02 17:00 | HO.PHPPROGNO ---
Subjective Subjective Date of Service: 01/02/25 Reason For Visit: alcohol, depression, anxiety Interim History: Depressed, dysphoric but is appreciating being back at program. This far is tolerating switch to XR formulation which is much less sedating and emotionally blunting. I can think clearer. I'm more aware of my thoughts but also more aware of my anxiety especially during the day. Feels this is the 'right track' and is open to increasing the dose if needed. We will see if he tolerates 100 XR during the day. Is still sleeping with some of HS dose moved to XR. Takes a little longer to fall asleep. Mirtazapine at 45 mg. Has been over 6 weeks on mirtazapine. He has had an adequate trial. Will plan to switch to SSRI hwich he is nervous about due to potential for side effects, but understands Wellbutrin should help mitigate this and also at point where depression is really starting to where him down. Improved future orientation. I want to feel better. I want to get my life back. I just dont know how yet . Continues to use cannabis at night, but considerably less use than on weekends. He is making more effort to eat. I cooked myself a meal last night. It was so hard. I didnt want to. I wasn't hungry. But I did it. I feel good about that . Medication Compliance: Yes Side effects from medications: No Attending Groups: Yes Review of Systems Acute medical concerns: No Mental Status Exam Mental Status Exam Narrative: Alert, oriented, in no acute distress. Downcast, appears tired, tearful. Eye contact intermittent. Mood depressed, affect sad, dysphoric. Speech normal. Thought process linear, coherent. Thought content related to stressors, feeling demoralized, tired, +transient hopelessness, denies SI or HI. No paranoia or delusional content elicited. No evidence of psychosis. Insight improving and judgment - fair-good. Diagnostics Vital Signs (24Hr): BMI result Body Mass Index 23.0 Assessment & Plan Assessment & Plan (1) Alcohol use disorder: Status: Acute Code(s): F10.90 - Alcohol use, unspecified, uncomplicated (2) SHAUNA (generalized anxiety disorder): Status: Acute Code(s): F41.1 - Generalized anxiety disorder (3) MDD (major depressive disorder), severe: Status: Acute Code(s): F32.2 - Major depressive disorder, single episode, severe without psychotic features (4) Cannabis use disorder: Status: Acute Code(s): F12.90 - Cannabis use, unspecified, uncomplicated Plan continue Wellbutrin SR 100 mg qam (will titrate toward BID this week as tolerated) continue guanfacine ER 1 mg qam (will titrate toward BID this week as tolerated) continue Seroquel XR 50-100 mg qam switch from Seroquel (IR) 200 mg qhs to 100 mg IR and XR 100 mg qhs continue mirtazapine 45 mg (may consider switching to citalopram) still holding gabapentin, may consider naltrexone instead Pending routine lab work and EKG Continue to monitor Patient educated on: diagnosis, medication risk/benefits and substance abuse Informed Consent: understands Reason for contiued partial hosp. stay Substantial Risk for: inability to function, rapid decompensation and med/psych decompensation Certification I certify that partial hospital treatment is medically necessary due to the symptoms and problems resulting from the patient's mental illness and the failure to treat the patient at the partial hospital level of care would likely result in the patient requiring inpatient psychiatric care which could not be prevented at a less intensive level of care. Total time managing care of this patient today __30__ minutes. Discharge Plan Discharge Attending provider: Allie Langley Additional Instructions: If you change your mind and plan to stay in the area call [facility] for a new PCP appointment. Office # [phone]. They also have a walk in clinic [facility] the [facility]. Location [address] [facility]. [id number]. Medications: New bupropion HCl 100 mg tablet sustained-release 12 hr 100 mg PO QAM Qty: 14 0RF guanfacine 1 mg tablet extended release 24 hr 1 mg PO DAILY Qty: 14 0RF quetiapine 50 mg tablet extended release 24 hr 50 mg PO DAILY Qty: 30 0RF citalopram 20 mg tablet See Rx Instructions .ROUTE .COMPLEX Qty: 30 0RF Rx Instructions: start 1/2 tablet tablet po daily at bedtime for 2-4 days, then increase to 1 tablet po daily at bedtime Continued quetiapine [Seroquel] 50 mg Tablet 50 mg PO BID PRN (Reason: Anxiety) quetiapine [Seroquel] 100 mg Tablet 200 mg PO BEDTIME Qty: 30 0RF Rx Instructions: Take 2 tabs at bedtime. Changed mirtazapine 45 mg Tablet 30 mg PO BEDTIME Qty: 20 0RF Stand Alone Forms: Patient Portal Discharge page Print Language: Turkmen
--- NOTE | 2025-01-03 14:53 | PC.NURSE ---
Patient planning on moving back to [place]. He has an apartment there. He was given information regarding a new PCP if he changes his mind and plans to stay in the area. He can call [facility] for a new PCP appointment. Office # [phone]. They also have a walk in clinic inside the [facility]. Location [address] [facility]. [id number].
--- NOTE | 2025-01-04 15:31 | HO.PHP ---
[facility] staff member met with Valeriy who noted that he is struggling within the group setting due to his anxiety increasing and feeling restless. Valeriy did note that he found the first group to be helpful and found the support and feedback to be benefiicial. [facility] staff member was glad to hear and encouraged him to continue to process his thoughts and feelings so that he can continue to work towards stabilization. Valeriy was in agreement. Valeriy did express that he began lexapro today and is uncertain if that is creating his anxiety to increase. [facility] staff member noted that it takes Lexapro some time to build up in his system but if he has continued concerns to let Dr. Langley know. Valeriy was receptive and voiced that he is on so many medications now, it is hard to tell what is causing the side effects. [facility] staff was actively listening to Valeriy. Valeriy also talked about how he will be moving back to [place] and we reviewed exploring therapist, PCP, and med providers within that area prior to moving back out there so he has the services in place. Valeriy was receptive.
--- NOTE | 2025-01-05 14:58 | HO.PHP ---
Valeriy left a voicemail on Martha's phone stating that he will not be in attendance to program today due to oversleeping and missing his alarm. Valeriy voiced that he feels it is due to the medication change and he will be in attendance to program tomorrow.
--- NOTE | 2025-01-06 09:49 | P.EN_ITS ---
Event Note Date of Service: 01/05/25 Event Note: 01/05/25. Patient called out of program this morning. I reached out by phone around 5:30 pm to check in. My anxiety is really bad. I couldn't make it in today . We reviewed events. Says he went to bed a little on the late side last night , reports being over at a friend's house last night, hung out a while, then went on a late-night 3- hour car ride talking on the phone with a friend.. just getting very emotional, crying.. so much regret... just beating myself up . He denies any alcohol use (says he still has not had anything to drink in past 2 months) but says he did smoke marijuana with his friends. He insists he was fine to drive , drives under speed limit. I inquire about his mindset at the time and he assures me that he did not have any suicidal thoughts (active or passive) or impulsive thoughts about hurting himself or others. He denies driving dangerously or recklessly, (although had been smoking weed earlier). He says he found it helpful to talk his feelings out. He admits he did not get home until after midnight, took his night meds late, (which very likely made it too difficult to wake up this morning). ended up calling out of the program in the morning and then went back to sleep until noon. He woke feeling very anxious. He took his AM meds around 1pm (SXR 100, WB 100, candida 1). He feels the SXR 100 helped only for a while but has worn off and is feeling more anxious again now. He forgot to move up on the doses of Wellbutrin or guanfacine (I suggest he holds off adding the 2nd dose of Wellbutrin (50 mg) since it is late in the day now. He says he wont be going on any long drives tonight and is agreeable to repeating a Seroquel XR 100 mg now along with guanfacine ER 1 mg and will get to bed at a decent hour. I encourage him to try avoid marijuana use to see how this is impacting his anxiety, however he already took a hit just prior to this phone call. Did not do [facility] for his anxiety. He agrees to get to bed a decent hour, to ensure he is not taking his HS meds late and will be able to get up in the AM to make it to program. Denies any adverse effects from starting on citalopram. Will increase to 20 mg citalopram, decrease mirtazapine to 15 mg, and Seroquel IR 100 mg and XR 50 mg. I strongly advise patient, in the future, to avoid making calls when driving, particularly when emotional and heavily invested conversations, or to well puller head somewhere safe if need be. Preferably to make calls when he is not driving. It's also difficult to imagine he could be adequately focused on the road, if he is getting worked up and emotional, and should avoid driving in such a distracted state. He agrees this is not ceballos and will avoid doing so going forward.?? ? Time Spent With Patient Time: Total time managing care of this patient today __30__ minutes.
--- NOTE | 2025-01-06 18:27 | P.PNPSP_ITS ---
Subjective Subjective Date of Service: 01/06/25 Reason For Visit: alcohol, depression, anxiety, cannabis Interim History: Patient seen for follow-up today. Still some anxiety, but I think I'm doing better today... Definitely better than yesterday. I feel clearer Yesterday, he took an additional Seroquel XR 100 mg after we spoke which helped ease some of his anxiety, did not feel tired, still had some anxiety but was able to hang with friends for a while then got himself home and in bed by 10pm. Had some difficulties falling asleep (which was not surprising since he slept until after noon yesterday). This morning, as planned, he took Seroquel XR at 150 mg, guanfacine at 2 mg and Wellbutrin SR, all 150 mg (he forgot he was supposed to stagger the dose to 100 AM/50lunch). Nonetheless he is noticing less anxiety, actually it's not too bad right now . Anxiety usually at an 8 out of 10 in severity, 10/10 when it gets bad . Presently says anxiety might be at a 4. I'm trying to not be so hard on myself and just focus on the things I need to do for now . Gives examples of getting up earlier so he can go to the gym and is planning to try to have a more structured weekend I know I feel better when I exercise . Says it has just been hard to get himself to do this for the past 2 months being depressed. He talks about trying to learn to have more self-love the way I talk to myself it terrible . Says he has always been his own worse critic , a lot of self-hatred, self judgment , he shares there have been things he is really hung up about so much regret.. I made a lot of bad decisions, I've done things I regret... I'm trying to learn and to forgive myself . He was more engageable today than he was at the start of the week (coming off last weekend). He still experiencing anxiety but has been more manageable today. He still feels depressed, but is not as crippling and has been able to have some better moments here and there through the week. He notes having had some good conversations this week and has enjoyed socializing in light banter with some of his peers this morning. He discusses some vague plans for the weekend which include trying to wake up at a decent hour and get himself to the gym. He acknowledges that weekends have been a real struggle . He still experiences a lot of anxiety, feeling depressed, guilty, helpless, and tendencies to ruminate on the past (especially specific regrets involving his last relationship), transient hopelessness. He has had occasional thoughts of hitting himself but has not acted on these thoughts this week. They usually occur if he gets too focused looking back on the past. (Last time he hit himself was last , perhaps last Thursday). These problems seem to get worse over the weekends, more intrusive thoughts (negative self talk), more self-sabotage, and seems there is more time alone constantly ruminating on the past, spiraling with intrusive thoughts, agitation and worsening mood and despair. He proposes this is due to having more structure during the week. I suggest there could also be a correlation between heavier cannabis use on weekend days, with experiencing worse anxiety and more ruminations/more intrusive thoughts as a result; Or perhaps, at least, using marijuana throughout the day may be hindering him from engaging in self care, healthier social activities, or developing healthier habits with eating and exercise. He continues to use marijuana on a daily basis, less use during the week, says he only uses marijuana in the evenings after the program (M-F). He acknowledges this is a decrease in daily amount than he had been smoking in the 2 months prior to [facility] - either consistently smoking all day long, or smoking on and off throughout the day. He continues to smoke marijuana in this manner on the weekends. He believes it helps with his anxiety, although upon further exploration, he admits it's probably not as helpful as he thinks, especially since his anxiety persists regardless of use. But is anxious about cutting back, he started smoking regularly 2 months ago as a substitute for alcohol. He has not relapsed on alcohol and feels he is relied on marijuana to manage his anxiety and getting emotionally overwhelmed. We discuss that regular/heavy cannabis use is likely complicating treatment and is not helping in the long run, sounds like it may cause him to become overly introspective, more ruminative and perseverating on past events/regrets and compounding guilt, regret, self-anger, agitation. It is also likely diminishing the effectiveness of his medications. Also mentions concerns about weight gain, has been noticing increased appetite in past month since starting on Seroquel, mirtazapine), most notably at night (?cannabis). However he attributes eating more heavily late at night after taking his night medications. Medication Compliance: Yes Side effects from medications: Yes (unclear how cannabis is affecting patient's sx/presentation and rx/trtmt ) Attending Groups: Yes Review of Systems Acute medical concerns: No Mental Status Exam Mental Status Exam Narrative: Alert, oriented, in no acute distress. Appears a little brighter, less tired, more engaged. Good eye contact. Hygiene/grooming fair. Mood anxious, depressed, affect variable, some range of affect, mood congruent, no tearfulness or lability. Speech normal. Thought process linear, coherent, less ruminative. Thought content related to stressors, transient helplessness, hopelessness, some improvement in future-orientation, self-esteem issues, transient thoughts of hitting himself but not overwhelming and has not acted on this this week. more impulse control, denies SI or HI. No AH or VH. No paranoia or delusional content elicited. No evidence of psychosis. Insight improving and judgment fair but adequate. Diagnostics Vital Signs (24Hr): BMI result Body Mass Index 23.0 Assessment & Plan Assessment & Plan (1) Cannabis use with cannabis-induced disorder: Status: Acute Code(s): F12.99 - Cannabis use, unspecified with unspecified cannabis-induced disorder (2) MDD (major depressive disorder), severe: Status: Acute Code(s): F32.2 - Major depressive disorder, single episode, severe without psychotic features (3) SHAUNA (generalized anxiety disorder): Status: Acute Code(s): F41.1 - Generalized anxiety disorder Assessment and Plan: mixed anxiety disorder social anxiety as well as generalized (4) Alcohol use disorder: Status: Acute Code(s): F10.90 - Alcohol use, unspecified, uncomplicated Plan Trying to limit Seroquel to 300 mg/d in total. This week had been taking 100XR in AM and 100IR 100XR in PM. Sleeping well but tired in AM if takes meds late. Anxiety worse later in the afternoon/evening. Bumping up AM Seroquel XR to 150 and will move night-time XR dose earlier to help with evening anxiety. SeroquelXR 100-150 BID (AM/5pm). Leave IR Seroquel 100mg at night but planning to put gabapentin on in place of HS Seroquel, to focus XR during day for anxiety and also try again to see if gabapentin might be helpful during the day. (POP provider had patient start at 300 mg TID but did not tolerate, we held off on gabapentin this week to start citalopram, bupropion, guanafacine) since he was struggling with severe depression as well as anxiety) switch Wellbutrin to XL 150 mg qam for ease of taking once a day - and will plan to add 50 mg SR as tolerated continue guanfacine ER 2 mg QAM increased Seroquel XR to 150 mg QAM continue citalpram 20 mg qhs (plan to increase to 30 mg next week) continue mirtazapine 15 mg qhs (consider tapering off due to incr appetite/eating at night) continue gabapentin 600 mg BID prn (late afternoon/HS) for anxiety, sleep decrease Seroquel (IR) to 100 mg qhs continue Seroquel XR 50 mg qhs for now (if gabapentin not effective for anxiety, or too sedating during day) will move gabapentin to HS only will move Seroquel XR from HS to 5pm dosing, at 100 mg) and lower Seroquel IR dose to 50 mg qhs consider starting guanfacine ER 1 mg qd@5pm) consider starting naltrexone, or possibly trazodone (to replace IR Seroquel) Pending routine lab work and EKG - patient reminded Continue to monitor Patient educated on: diagnosis, medication risk/benefits and substance abuse Informed Consent: understands Reason for contiued partial hosp. stay Substantial Risk for: inability to function, rapid decompensation and med/psych decompensation Certification I certify that partial hospital treatment is medically necessary due to the symptoms and problems resulting from the patient's mental illness and the failure to treat the patient at the partial hospital level of care would likely result in the patient requiring inpatient psychiatric care which could not be prevented at a less intensive level of care. Total time managing care of this patient today __50__ minutes. Discharge Plan Discharge Attending provider: Allie Langley Additional Instructions: If you change your mind and plan to stay in the area call [facility] for a new PCP appointment. Office # [phone]. They also have a walk in clinic inside the [facility]. Location [address] [facility]. [address]. Medications: New bupropion HCl 100 mg tablet sustained-release 12 hr 100 mg PO QAM Qty: 14 0RF guanfacine 1 mg tablet extended release 24 hr 1 mg PO DAILY Qty: 14 0RF citalopram 20 mg tablet See Rx Instructions .ROUTE .COMPLEX Qty: 30 0RF Rx Instructions: start 1/2 tablet tablet po daily at bedtime for 2-4 days, then increase to 1 tablet po daily at bedtime bupropion HCl 150 mg tablet extended release 24 hr 150 mg PO QAM Qty: 20 0RF quetiapine 150 mg tablet extended release 24 hr 150 mg PO DAILY Qty: 30 0RF guanfacine 2 mg tablet extended release 24 hr 2 mg PO DAILY Qty: 20 0RF Continued quetiapine [Seroquel] 100 mg Tablet 200 mg PO BEDTIME Qty: 30 0RF Rx Instructions: Take 2 tabs at bedtime. Changed mirtazapine 45 mg Tablet 30 mg PO BEDTIME Qty: 20 0RF quetiapine 50 mg tablet extended release 24 hr 50 mg PO BID Qty: 30 0RF Discontinued quetiapine [Seroquel] 50 mg Tablet 50 mg PO BID PRN (Reason: Anxiety) Stand Alone Forms: Patient Portal Discharge page Print Language: [place]
[2025-01-09 13:23] VITALS: BP 123/80; PULSE 76
--- NOTE | 2025-01-09 17:20 | HO.PHPPROGNO ---
Subjective Subjective Date of Service: 01/09/25 Reason For Visit: alcohol, depression, anxiety, cannabis Interim History: Patient seen for follow-up. Had a difficult weekend wasn't as bad as usual . Thursday was feeling better, at least for the first half of the day, but says last night I spun out , didn't feel right, couldnt stop being upset with myself..just depressed . Took the gabapentin 600 mg at 5pm. Hung out with a friend, tried not to smoke as much, doesn't feel it made his anxiety any better or worse with cutting back marijuana or taking the gabapentin. Was home by 9:30pm. Delayed taking his night meds, just didn't feel ready to settle in, anxiety was high. I got a lot of bad habits... must be looking for instant dopamine, scrolling on my phone for hours . Once he took his meds he didn't have trouble falling asleep. Today I'm feeling okay I think. definitely not as physically anxious this morning. He continues to tolerate Wellbutrin, guanfacine Seroquel XR 150 in the morning. Gabapentin not helping with anxiety, definitely not able to stave off rumination or agitation like the Seroquel. WIll try having him take 2nd dose of Seroquel XR at 5pm (instead of beditme). WIll try cutting back HS Seroquel and mirtazapine. Endorses some alcohol cravings, mostly when he is anxious and feeling overwhelmed but does not feel he is close to relapsing. We discuss naltrexone which he agrees may be helpful but will return to discussion after we sort out Seroquel. Medication Compliance: Yes Side effects from medications: No Attending Groups: Yes Review of Systems Acute medical concerns: No Mental Status Exam Mental Status Exam Narrative: Alert, oriented, in no acute distress. Appears a little brighter, less tired, more engaged. Good eye contact. Hygiene/grooming fair. Mood anxious, depressed, affect variable, some range of affect, mood congruent, no tearfulness or lability. Speech normal. Thought process linear, coherent, less ruminative. Thought content related to stressors, transient helplessness, hopelessness, some improvement in future-orientation, self-esteem issues, transient thoughts of hitting himself but not overwhelming and has not acted on this this week. more impulse control, denies SI or HI. No AH or VH. No paranoia or delusional content elicited. No evidence of psychosis. Insight improving and judgment fair but adequate. Diagnostics Vital Signs (24Hr): Vital Signs - 24 hr 01/09/25 13:23 Pulse Rate 76 Blood Pressure 123/80 BMI result Body Mass Index 23.0 Assessment & Plan Assessment & Plan (1) Cannabis use with cannabis-induced disorder: Status: Acute Code(s): F12.99 - Cannabis use, unspecified with unspecified cannabis-induced disorder (2) MDD (major depressive disorder), severe: Status: Acute Code(s): F32.2 - Major depressive disorder, single episode, severe without psychotic features (3) SHAUNA (generalized anxiety disorder): Status: Acute Code(s): F41.1 - Generalized anxiety disorder Assessment and Plan: mixed anxiety disorder social anxiety as well as generalized (4) Alcohol use disorder: Status: Acute Code(s): F10.90 - Alcohol use, unspecified, uncomplicated Plan continue Wellbutrin XL 150 mg qam, will plan to add 50 mg SR tomorrow continue guanfacine ER 2 mg QAM continue Seroquel XR 150 mg QAM start Seroquel XR 150 mg qd at 5pm start guanfacine ER 1 mg qd at 5pm increase citalopram to 30 mg qhs continue mirtazapine 15 mg qhs (consider tapering off due to incr appetite/eating at night) continue gabapentin 600 mg QHS lower Seroquel to 50 mg qhs (hold HS Seroquel XR and move to q5pm) consider starting naltrexone, or possibly trazodone (to replace IR Seroquel) Pending routine lab work and EKG - patient reminded Continue to monitor Patient educated on: diagnosis, medication risk/benefits and substance abuse Informed Consent: understands Reason for contiued partial hosp. stay Substantial Risk for: harm to self, inability to function, rapid decompensation and med/psych decompensation Certification I certify that partial hospital treatment is medically necessary due to the symptoms and problems resulting from the patient's mental illness and the failure to treat the patient at the partial hospital level of care would likely result in the patient requiring inpatient psychiatric care which could not be prevented at a less intensive level of care. Total time managing care of this patient today __40__ minutes. Discharge Plan Discharge Attending provider: Allie Langley Additional Instructions: If you change your mind and plan to stay in the area call [facility] for a new PCP appointment. Office # [phone]. They also have a walk in clinic inside the [facility]. Location [address] [facility]. [id number]. Medications: New bupropion HCl 100 mg tablet sustained-release 12 hr 100 mg PO QAM Qty: 14 0RF guanfacine 1 mg tablet extended release 24 hr 1 mg PO DAILY Qty: 14 0RF citalopram 20 mg tablet See Rx Instructions .ROUTE .COMPLEX Qty: 30 0RF Rx Instructions: start 1/2 tablet tablet po daily at bedtime for 2-4 days, then increase to 1 tablet po daily at bedtime bupropion HCl 150 mg tablet extended release 24 hr 150 mg PO QAM Qty: 20 0RF quetiapine 150 mg tablet extended release 24 hr 150 mg PO DAILY Qty: 30 0RF guanfacine 2 mg tablet extended release 24 hr 2 mg PO DAILY Qty: 20 0RF mirtazapine 15 mg tablet 7.5 mg PO BEDTIME Qty: 20 0RF guanfacine 1 mg tablet extended release 24 hr 1 mg PO QPM Qty: 30 0RF naltrexone 50 mg tablet 25 - 50 mg PO .QHS Qty: 20 0RF Continued quetiapine [Seroquel] 100 mg Tablet 200 mg PO BEDTIME Qty: 30 0RF Rx Instructions: Take 2 tabs at bedtime. Changed mirtazapine 45 mg Tablet 30 mg PO BEDTIME Qty: 20 0RF quetiapine 50 mg tablet extended release 24 hr 50 mg PO BID Qty: 30 0RF Discontinued quetiapine [Seroquel] 50 mg Tablet 50 mg PO BID PRN (Reason: Anxiety) Stand Alone Forms: Patient Portal Discharge page Print Language: [place]
--- NOTE | 2025-01-11 23:18 | P.EN_ITS ---
Event Note Date of Service: 01/10/25 Event Note: Wednesday 01/10: Spoke with patient after 5pm. He reportedly missed his alarm this morning, may have forgotten to set it. Then woke up at 9am, rushed to get ready but car battery was . So had to call out of program today. Says he's disappointed with himself, is trying hard not to beat himself up. He recognizes it is not helpful but hard not to do. He chose not to go back to bed and try to implement some structure, but was feeling anxious from having an off morning. He had had some trouble falling asleep last night. He took 100 mg Seroquel IR and took the 5 pm meds (Seroquel XR) late. No issues with increase in citalopram thus far. Says he has been feeling better after taking his AM meds. Anxiety is more manageable. He took his 2nd dose of Seroquel XR 150 about an hour ago, has been dragging more since taking that dose but denies any agitation, thoughts of SIB today, denies SI. Has not been ruminating as much, thoughts still tend toward the past but has been better able to distract himself and keep busy. He is helping his mom with grocery shopping tonight and spending time with a friend. He has made some inroads with cutting back on marijuana use by 30% . Med adjustments namely with scheduling XR Seroquel BID to manage persistent anx iety/agitation/rumination while waiting for antidepressants to take effect. Gabapentin not really helpful for anxiety, had a rough night last night heavily ruminating and getting emotional (on gabapebtin) Will also taper off mirtazapine due to incr appetite a lot of late-night eating (also compounded by marijuana use). Wellbutrin XL 150 mg qam + SR 50 mg guanfacine ER 2 mg QAM Seroquel XR 150 mg QAM Seroquel XR 100-150 qd at 5pm guanfacine ER 1 mg qd at 5pm continue citalpram 20 mg qhs (plan to increase to 30 mg next week) taper off mirtazapine continue gabapentin 900-1200 mg to target sleep, etoh addx, (also may eventually substitute for Seroquel as prn anxiety b if agitation/SIB subsides) may take Seroquel (IR) 50 mg qhs PRN sleep (or qd PRN agitation) continue Seroquel XR 50 mg qhs for now (if gabapentin not effective for anxiety, or too sedating during day) consider starting naltrexone Pending routine lab work and EKG - patient reminded again for tomorrow AM Time Spent With Patient Time: Total time managing care of this patient today _20___ minutes.
--- NOTE | 2025-01-13 12:12 | P.PNPSP_ITS ---
Subjective Subjective Date of Service: 01/13/25 Reason For Visit: alcohol, depression, anxiety, cannabis Interim History: Patient seen for follow-up. The past few days have been better . Mood has been more steady, no major spirals or crying episodes in past 2-3 nights. He has been staying on a regular schedule with Seroquel XR in AM and 5pm and is tolerating combination of Wellbutrin, guanfacine, citalopram. He was able today to discuss self-esteem issues, mood dysregulation, rejection sensitivity while maintaining emotional control/regulated affect, which is change. Appetite more controlled, he has not been binge-eating late at night since we discontinued Seroquel (IR) and mi rtazapine. He has continued to take gabapentin in split doses 600/600 at 7pm and 9pm. It helps ease him to sleep. Taking longer to fall asleep but there is room for improvement in sleep hygiene, as he acknowledges spending a lot of time on screens (on his phone or playing VGs). He is happy to be on less Seroquel and is open to starting the naltrexone to help with restoring balance within prefrontal circuitry/suppression of impulsive responding in addictive behaviors. Will also offer trazodone if needed for sleep. Looks forward to getting back to his life at some point (back in [place]) but still feeling a fragile and recognizes he will continue to need support being home for the near future. He is hoping he can at some point return to drinking, although shares some ambivalence about drinking knowing it contributed to some of his regretted behaviors. He denies any cravings (although is noted to mention them in groups) but relays being committed to his continued efforts to abstain from alcohol. Continues to minimize cannabis use and impact on his mental health and functioning. Medication Compliance: Yes Side effects from medications: No Attending Groups: Yes Review of Systems Acute medical concerns: No Mental Status Exam Mental Status Exam Narrative: Alert, oriented, in no acute distress. Hygiene improved, groomed hair, without hat today, Appears brighter, less tired, more engaged. Good eye contact. Mood less depressed, less anxious, affect variable, brighter, mood congruent, no tearfulness or lability. Speech normal. Thought process linear, coherent, less ruminative, more goal-directed. Thought content related to stressors, future- oriented, gaining insight into self-esteem issues, better impulse control, denies recent urges or acts of SIB. Denies SI or HI. No AH or VH. No evidence of psychosis. Insight and judgment improving. Diagnostics Vital Signs (24Hr): BMI result Body Mass Index 23.0 Assessment & Plan Assessment & Plan (1) Cannabis use with cannabis-induced disorder: Status: Acute Code(s): F12.99 - Cannabis use, unspecified with unspecified cannabis-induced disorder (2) MDD (major depressive disorder), severe: Status: Acute Code(s): F32.2 - Major depressive disorder, single episode, severe without psychotic features (3) SHAUNA (generalized anxiety disorder): Status: Acute Code(s): F41.1 - Generalized anxiety disorder (4) Alcohol use disorder: Status: Acute Code(s): F10.90 - Alcohol use, unspecified, uncomplicated Plan cont PHP cont Wellbutrin XL 150 mg qam cont Wellbutrin SR 50 mg cont guanfacine ER 2 mg QAM (consider increasing to 3 mg) cont Seroquel XR 150 mg QAM (eventually transition to GBT once agitation/SIB subsides) cont Seroquel XR at 100 qd at 5pm (eventually transition to GBT once agitation/SIB subsides) cont guanfacine ER 1 mg qd at 5pm (plan to increase to 2 mg next week, ) continue gabapentin 1200 mg/d (stagger dose 600/600 at evening/bedtime) continue citalopram 30 mg qhs start naltrexone 50 mg qhs may take trazodone 50 mg qhs PRN sleep discont mirtazapine, Seroquel (IR) Pending routine lab work and EKG - patient reminded again for Thursday AM, if not, non-fasting labs order slip for after program VS: (01/09/25) 123/80; 76 bpm - on 3 mg/d of guanfacine - will plan to titrate to 4-5 mg/d as tolerated next week continue to monitor Patient educated on: diagnosis, medication risk/benefits and substance abuse Informed Consent: understands Reason for contiued partial hosp. stay Substantial Risk for: inability to function, rapid decompensation and med/psych decompensation Certification I certify that partial hospital treatment is medically necessary due to the symptoms and problems resulting from the patient's mental illness and the failure to treat the patient at the partial hospital level of care would likely result in the patient requiring inpatient psychiatric care which could not be prevented at a less intensive level of care. Total time managing care of this patient today __30__ minutes. Discharge Plan Discharge Attending provider: Allie Langley Additional Instructions: If you change your mind and plan to stay in the area call [facility] for a new PCP appointment. Office # [phone]. They also have a [facility]. Location [address] [place] [address]. [id number]. Medications: New bupropion HCl 100 mg tablet sustained-release 12 hr 100 mg PO QAM Qty: 14 0RF citalopram 20 mg tablet See Rx Instructions .ROUTE .COMPLEX Qty: 30 0RF Rx Instructions: start 1/2 tablet tablet po daily at bedtime for 2-4 days, then increase to 1 tablet po daily at bedtime bupropion HCl 150 mg tablet extended release 24 hr 150 mg PO QAM Qty: 20 0RF quetiapine 150 mg tablet extended release 24 hr 150 mg PO DAILY Qty: 30 0RF guanfacine 2 mg tablet extended release 24 hr 2 mg PO DAILY Qty: 20 0RF guanfacine 1 mg tablet extended release 24 hr 1 mg PO QPM Qty: 30 0RF naltrexone 50 mg tablet 25 - 50 mg PO .QHS Qty: 20 0RF trazodone 50 mg tablet 50 mg PO BEDTIME PRN (Reason: sleep) Qty: 20 0RF Changed quetiapine 50 mg tablet extended release 24 hr 50 mg PO BID Qty: 30 0RF Discontinued quetiapine [Seroquel] 100 mg Tablet 200 mg PO BEDTIME Rx Instructions: Take 2 tabs at bedtime. mirtazapine 45 mg Tablet 45 mg PO BEDTIME quetiapine [Seroquel] 50 mg Tablet 50 mg PO BID PRN (Reason: Anxiety) Stand Alone Forms: Patient Portal Discharge page Print Language: Divehi
--- NOTE | 2025-01-15 18:31 | PM.EVENT ---
Event Note Date of Service: 01/15/25 Event Note: Checking in with patient this evening. He was very tearful and emotional on the phone. He reports taking his AM meds and had been feeling good earlier in the day, forewent taking his 5pm meds I didn't think I needed them . He started noting some sadness setting in the evening and started ruminating on the past. Went on social media and saw a photo of his ex which set him into a crying fit which he finds himself in at the moment, grieving the loss of this relationship, deep sense of regret and remorse over his behaviors especially toward the end of the relationship, struggles with self-esteem, abandonment, rejection sensitive dysphoria. He shares feelings of helplessness, some moments of despair but says he is trying to remain hopeful that he will learn to forgive himself but it's just really hard to do. He had been having a good 4-5 day stretch up until tonight. I do feel missing his 5pm meds contributed to a more difficult evening. I suggest at this point he takes IR Seroquel 100 mg this evening (in lieu of the Seroquel XR 100 mg missed at 5pm) and then start tomorrow with adhering to med schedule, which he agrees to do. Time Spent With Patient Time: Total time managing care of this patient today ____ minutes.
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
[2025-01-18 11:50] VITALS: BP 110/70; PULSE 64
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
--- NOTE | 2025-01-19 23:02 | P.PNPSP_ITS ---
Subjective Subjective Date of Service: 01/19/25 Reason For Visit: alcohol, depression, anxiety, cannabis Interim History: picked up his medications - will hold off starting gabapentin since limited help with sleep (not with onset) today took Wellbutrin XL 300 guanfacine ER 3 mg ABilify 2.5 mg qd no SXR 5pm took Abilify 2.5 mg qd guanfacine 2 mg no SXR PM citalopram 30 mg qhs naltrexone 50 mg qhs take SXR 50 to taper off increase trazodone to 100 mg will consider making PRNs: Seroquel 50-100 mg for QHS PRN agitation/SIB thoughts Seroquel XR 50-100 mg vs gabapentin 600 mg for for daytime or early evening anxiety Mental Status Exam Mental Status Exam Narrative: Tearful today, at times inconsolable, more isolative. Yet cooperative and readily engageable. Depressed, dysphoric. Affect mood congruent tearful, labile. Speech normal. Perseverative, otherwise no evidence of thought disorder. Some future-orientation, mostly angst about the future. Thought content ruminative, s elf-esteem issues, SIB thoughts, some impulse control, difficulty concentrating, feeling helpless, demoralized. No thoughts of giving up on life, No AH or VH. Insight and judgment more limited today. Diagnostics Vital Signs (24Hr): BMI result Body Mass Index 23.0 Assessment & Plan Assessment & Plan (1) Cannabis use with cannabis-induced disorder: Status: Acute Code(s): F12.99 - Cannabis use, unspecified with unspecified cannabis-induced disorder (2) MDD (major depressive disorder), severe: Status: Acute Code(s): F32.2 - Major depressive disorder, single episode, severe without psychotic features (3) SHAUNA (generalized anxiety disorder): Status: Acute Code(s): F41.1 - Generalized anxiety disorder (4) Alcohol use disorder: Status: Acute Code(s): F10.90 - Alcohol use, unspecified, uncomplicated Plan continue PHP continue Wellbutrin XL 300 (to target depression, cognition/motivation/ADD sx, may support decreasing nicotine use continue guanfacine ER 3 mg qam (to target anxiety, attention/focus, impulsivity) hold Abilify 2.5 mg for a few hours to see if causing sedation vs guanfacine (if Abilify is sedating with move 2.5 mg to bedtime) consider reinstating mirtazapine 7.5 mg however in the AM to help support appetite during day (if not too sedated this AM) continue Abilify 2.5 mg daily in afternoon at 5pm continue guanfacine ER 2 mg daily in afternoon at 5pm continue citalopram 30 mg qhs (consider titration to 40 mg) continue naltrexone 40 mg qhs continue trazodone 100 mg qhs PRN tapered off SXR 100 mg BID, with PRN 50 mg qhs tapered off Seroquel 50-100 mg at night (down from 400 mg/d on admission) finally starting vitamin D weekly [id number] start vitamin B12 pending EKG tomorrow! VS: (01/09/25) 123/80; 76 bpm - on 3 mg/d of guanfacine - will plan to titrate to 4-5 mg/d as tolerated next week Patient educated on: diagnosis, medication risk/benefits, substance abuse and medical condition Informed Consent: understands Reason for contiued partial hosp. stay Substantial Risk for: harm to self, inability to function, rapid decompensation and med/psych decompensation Certification I certify that partial hospital treatment is medically necessary due to the symptoms and problems resulting from the patient's mental illness and the failure to treat the patient at the partial hospital level of care would likely result in the patient requiring inpatient psychiatric care which could not be prevented at a less intensive level of care. Total time managing care of this patient today ____ minutes. Discharge Plan Discharge Attending provider: Allie Langley Additional Instructions: If you change your mind and plan to stay in the area call [facility] for a new PCP appointment. Office # [phone]. They also have a walk in clinic inside the [facility]. Location [address] [facility]. [address]. Medications: New citalopram 20 mg tablet See Rx Instructions .ROUTE .COMPLEX Qty: 30 0RF Rx Instructions: start 1/2 tablet tablet po daily at bedtime for 2-4 days, then increase to 1 tablet po daily at bedtime guanfacine 1 mg tablet extended release 24 hr 1 mg PO QPM Qty: 30 0RF naltrexone 50 mg tablet 25 - 50 mg PO .QHS Qty: 20 0RF trazodone 50 mg tablet 50 mg PO BEDTIME PRN (Reason: sleep) Qty: 20 0RF aripiprazole 5 mg tablet 5 mg PO BEDTIME Qty: 20 0RF bupropion HCl 100 mg tablet sustained-release 12 hr 100 mg PO QAM Qty: 20 0RF guanfacine 2 mg tablet extended release 24 hr 2 mg PO DAILY Qty: 30 0RF gabapentin 600 mg tablet 600 mg PO TID Qty: 30 0RF bupropion HCl 300 mg tablet extended release 24 hr 300 mg PO QAM Qty: 14 0RF ergocalciferol (vitamin D2) [Vitamin D2] 1,250 mcg (50,000 unit) capsule 1,250 mcg PO QWEEK Qty: 8 0RF mecobalamin (vitamin B12) [B12 Active] 1,000 mcg tablet,chewable 1,000 mcg PO BID Qty: 60 1RF magnesium glycinate 100 mg magnesium capsule 200 mg PO BEDTIME Qty: 60 0RF Changed quetiapine 50 mg tablet extended release 24 hr 50 mg PO BID Qty: 30 0RF guanfacine 2 mg tablet extended release 24 hr 2 mg PO BID Qty: 30 0RF Discontinued quetiapine [Seroquel] 100 mg Tablet 200 mg PO BEDTIME Rx Instructions: Take 2 tabs at bedtime. mirtazapine 45 mg Tablet 45 mg PO BEDTIME quetiapine [Seroquel] 50 mg Tablet 50 mg PO BID PRN (Reason: Anxiety) Stand Alone Forms: Patient Portal Discharge page Print Language: Sinhala
[2025-01-20 11:39] VITALS: BMI 23.3
--- NOTE | 2025-01-22 23:05 | P.PNPSP_ITS ---
Subjective Subjective Date of Service: 01/20/25 Reason For Visit: alcohol, depression, anxiety, cannabis Interim History: picked up his medications - will hold off starting gabapentin since limited help with sleep (not with onset) He talks about going to [place], but overwhelmed with all the steps he has to do to get there. Overall, mood,insight, functioning are seems to be gradually improving. Today some transient sad feeling that resolve. Anxiety and agitation are low today. Denies any SI/SIB, today took Wellbutrin XL 300 guanfacine ER 3 mg ABilify 2.5 mg qd no SXR 5pm took Abilify 2.5 mg qd guanfacine 2 mg no SXR PM citalopram 30 mg qhs naltrexone 50 mg qhs take SXR 50 to taper off will consider making PRNs: Seroquel 50-100 mg for QHS PRN agitation/SIB thoughts Seroquel XR 50-100 mg vs gabapentin 600 mg for for daytime or early evening anxiety to target depression, cognition/motivation/ADD sx, may support decreasing nicotine use Mental Status Exam Mental Status Exam Narrative: Tearful today, at times inconsolable, more isolative. Yet cooperative and readily engageable. Depressed, dysphoric. Affect mood congruent tearful, labile. Speech normal. Perseverative, otherwise no evidence of thought disorder. Some future-orientation, mostly angst about the future. Thought content ruminative, self-esteem issues, SIB thoughts, some impulse control, difficulty c oncentrating, feeling helpless, demoralized. No thoughts of giving up on life, No AH or VH. Insight and judgment more limited today. Diagnostics Vital Signs (24Hr): BMI result Body Mass Index 23.3 Assessment & Plan Assessment & Plan (1) Cannabis use with cannabis-induced disorder: Status: Acute Code(s): F12.99 - Cannabis use, unspecified with unspecified cannabis-induced disorder (2) MDD (major depressive disorder), severe: Status: Acute Code(s): F32.2 - Major depressive disorder, single episode, severe without psychotic features (3) SHAUNA (generalized anxiety disorder): Status: Acute Code(s): F41.1 - Generalized anxiety disorder (4) Alcohol use disorder: Status: Acute Code(s): F10.90 - Alcohol use, unspecified, uncomplicated Plan continue PHP start mirtazapine 3.75 mg qam (to stimulate appetite) lower Wellbutrin XL to 150 mg, add back SR 50 mg (eventually to SR 100, or 150 if appetite allows) (transition WEllbtrin back to SR since XL is suppressing appetite too much) lower guanfacine to 2 mg qam (to target anxiety, attention/focus, impulsivity) will hold guanfacine in PM for now (causing dry mouth) continue ABilify 2.5 mg in AM (ordered 2 mg tabs to production supervisor off shift and start using) continue Abilify 2.5 mg daily in afternoon at 5pm (ordered 2 mg tabs to production supervisor off shift and start using)q continue guanfacine ER 2 mg daily in afternoon at 5pm continue citalopram 30 mg qhs (consider titration to 40 mg) continue naltrexone 40 mg qhs continue trazodone 100 mg qhs PRN tapered off SXR 100 mg BID, with PRN 50 mg qhs tapered off Seroquel 50-100 mg at night (down from 400 mg/d on admission) finally starting vitamin D weekly [id number] start vitamin B12 pending EKG tomorrow! VS: (01/09/25) 123/80; 76 bpm - on 3 mg/d of guanfacine - will plan to titrate to 4-5 mg/d as tolerated next week Certification I certify that partial hospital treatment is medically necessary due to the sym ptoms and problems resulting from the patient's mental illness and the failure to treat the patient at the partial hospital level of care would likely result in the patient requiring inpatient psychiatric care which could not be prevented at a less intensive level of care. Total time managing care of this patient today ____ minutes. Discharge Plan Discharge Attending provider: Allie Langley Additional Instructions: If you change your mind and plan to stay in the area call [facility] for a new PCP appointment. Office # [phone]. They also have a walk in clinic inside the [facility]. Location [address] [facility]. [address]. Medications: New naltrexone 50 mg tablet 25 - 50 mg PO .QHS Qty: 20 0RF bupropion HCl 100 mg tablet sustained-release 12 hr 100 mg PO QAM Qty: 20 0RF guanfacine 2 mg tablet extended release 24 hr 2 mg PO DAILY Qty: 30 0RF gabapentin 600 mg tablet 600 mg PO TID Qty: 30 0RF ergocalciferol (vitamin D2) [Vitamin D2] 1,250 mcg (50,000 unit) capsule 1,250 mcg PO QWEEK Qty: 8 0RF mecobalamin (vitamin B12) [B12 Active] 1,000 mcg tablet,chewable 1,000 mcg PO BID Qty: 60 1RF magnesium glycinate 100 mg magnesium capsule 200 mg PO BEDTIME Qty: 60 0RF nicotine 14 mg/24 hr patch 24 hour 1 patch transdermal Q24H Qty: 14 0RF Rx Instructions: apply one patch to skin daily in AM, remove patch every night mecobalamin (vitamin B12) [B12 Active] 1,000 mcg tablet,chewable 1,000 mcg PO DAILY Qty: 30 1RF zinc citrate 11 mg tablet,chewable 11 mg PO .daily in evening Qty: 30 0RF magnesium glycinate 100 mg tablet 300 mg PO BEDTIME Qty: 90 1RF buspirone 10 mg tablet 10 mg PO BID Qty: 30 0RF Rx Instructions: start 1/2 tablet twice daily (in AM and 5pm) x 2 days, then increase to 1 tablet twice daily (in AM and 5pm) hydroxyzine pamoate 50 mg capsule 50 mg PO QID PRN (Reason: sleep, anxiety) Qty: 30 0RF aripiprazole 2 mg tablet 2 mg PO DAILY Qty: 30 0RF citalopram 20 mg tablet 30 mg PO DAILY Qty: 45 0RF Continued zolpidem [Ambien] 5 mg tablet 5 mg PO BEDTIME PRN (Reason: insomnia) Qty: 10 0RF Changed quetiapine 50 mg tablet extended release 24 hr 50 mg PO BID Qty: 30 0RF guanfacine 2 mg tablet extended release 24 hr 2 mg PO BID Qty: 30 0RF mirtazapine 7.5 mg tablet 7.5 mg PO DAILY PRN (Reason: appetite) Qty: 30 0RF aripiprazole 5 mg tablet 7.5 mg PO BEDTIME Qty: 23 0RF clonidine HCl 0.1 mg tablet 0.1 mg PO BEDTIME PRN (Reason: sleep) Qty: 14 0RF citalopram 20 mg tablet 30 mg PO BEDTIME 90 Days Qty: 135 0RF Discontinued quetiapine [Seroquel] 100 mg Tablet 200 mg PO BEDTIME Rx Instructions: Take 2 tabs at bedtime. mirtazapine 45 mg Tablet 45 mg PO BEDTIME quetiapine [Seroquel] 50 mg Tablet 50 mg PO BID PRN (Reason: Anxiety) Stand Alone Forms: Patient Portal Discharge page Print Language: Israeli
--- NOTE | 2025-01-22 23:15 | PM.EVENT ---
Event Note Date of Service: 01/25/25 Event Note: he is feeling his medication have continued to stabilize him as he is able to function now and will go to a friends house or go see his mother. His father's girlfriend has been cooking him supper so he is eating better. took mirtazapine 7.5 encouraged to start nicotine patch in AM will make mirtazapine 7.5 mg bid PRN appetite in AM or 30 min before meal discontinue Wellbutrin XL continue Wellbutrin SR 100 mg qam tomorrow (consider if 150 is better/tolerable) continue guanfacine ER 2 mg qam start buspirone 5 mg qam tomorrow increase buspirone to 10 mg in afternoon (ask if tiring)* (if sedating will include HS dose as TID, if not sedating, BID dosing AM/5pm --> plan to titrate to 15 bid or 10 tid as tolerated) continue Abilify 2 mg in AM (start transitioning toward evening) continue Abilify 2 mg in evening/5pm (may take as 5 mg BID (5pm/HS) or 2 mg in evening and 10 mg at night continue Abilify 5 mg qhs start vitamin B12 tomorrow AM (picked up - still hast started vitamins B12) continue citalopram 30 mg qhs continue naltrexone 50 mg qhs continue to use gabapentin 600 in evening or 1200 m hasg (qd in evening +/- sleepP start vitamin B12 1000 mcg qd Time Spent With Patient Time: Total time managing care of this patient today __45__ minutes.
--- NOTE | 2025-01-23 22:45 | P.PNPSP_ITS ---
Subjective Subjective Date of Service: 01/23/25 Reason For Visit: alcohol, depression, anxiety, cannabis Interim History: Patient seen for follow-up. Overall is feeling better today ?this is the 1st time since that brief reprieve over a week ago where he is feeling any improvement. He continues to struggle with eating in the morning. He did not take the mirtazapine, stating he had to run out of the house this morning to get brake fluid for the truck however he was made able to make it to the program in time. He admits to using his nicotine vape almost immediately upon waking in the morning and is has been started to be able to acknowledge that this is certainly contributing to his lack of appetite. This morning we held the Wellbutrin XL dose and continued only with Wellbutrin SR which is currently at 100 mg. He feels that the XL was was making it that much more difficult to eat and says he intends to have some lunch. He is notably more restless and hyper walking around the room with his phone and constantly repositioning it. Which may be on account of cutting his Wellbutrin in half. He had complained about fatigue when we had switched entirely over to XL 300, and even low appetite persisted with XL 150 in SR 100, the latter of which is his current dose. He complains feeling jittery which may be due to lowering guanfacine from 3-2 mg this morning (have concerns this was sedating the clearly not and will return dose to 3 mg tomorrow morning). It is nearly lunchtime he is yet eaten anything today aside from using his nicotine vape heavily I suspect low blood sugar and the nicotine also contribute to his sense of jitteriness and increased heart rate. This morning he took Abilify 2 mg, Wellbutrin SR 100, guanfacine ER 2, BuSpar 5 mg. I have encouraged him to take the mirtazapine 30 minutes prior to eating which may be helpful especially in the morning since he is not typically good at eating breakfast. We will plan this afternoon for 2nd dose of BuSpar, Abilify 5 mg gabapentin 600, guanfacine ER 1 mg he denies any hopelessness or SI but does present with irritable edge. He continues to struggle with high levels of anxiety, but did not start nicotine patch this morning. WIll continue to consolidate dosing of ABIlify as we taper off Seroquel. Medication Compliance: Yes Side effects from medications: No Attending Groups: Yes Review of Systems Acute medical concerns: No Mental Status Exam Mental Status Exam Narrative: Engaged, active. Mood less depressed,mildly irritable, no tearfulness. No evidence of thought disorder. Some future-orientation. Thought content ruminative, self-esteem issues, SIB thoughts endorsed but improved impulse control, has not been acting on thoughts. No thoughts of giving up on life, No AH or VH. Insight and judgment fair but adequate. Diagnostics Vital Signs (24Hr): BMI result Body Mass Index 23.3 Assessment & Plan Assessment & Plan (1) MDD (major depressive disorder), severe: Status: Acute Code(s): F32.2 - Major depressive disorder, single episode, severe without psychotic features (2) SHAUNA (generalized anxiety disorder): Status: Acute Code(s): F41.1 - Generalized anxiety disorder (3) Nicotine dependence with nicotine-induced disorder: Status: Acute Code(s): F17.209 - Nicotine dependence, unspecified, with unspecified nicotine-induced disorders (4) Cannabis use with cannabis-induced disorder: Status: Acute Code(s): F12.99 - Cannabis use, unspecified with unspecified cannabis-induced disorder (5) Alcohol use disorder: Status: Acute Code(s): F10.90 - Alcohol use, unspecified, uncomplicated (6) Attention-deficit hyperactivity disorder, unspecified type: Status: Acute Code(s): F90.9 - Attention-deficit hyperactivity disorder, unspecified type Assessment and Plan: r/o other impulse control disorders (7) B12 nutritional deficiency: Status: Acute Code(s): E53.8 - Deficiency of other specified B group vitamins Plan continue PHP take mirtazapine 7.5 mg qam (to stimulate appetite) continue Wellbutrin SR 100 mg qam return guanfacine to 3 mg qam (to target anxiety, attention/focus, impulsivity) return daily dose Abilify from 12 to 10 mg (in split dose) today was 2/5/5 (tomorrow lower to 5/5) continue citalopram 30 mg qhs (consider lowering dose to 20 mg mercy since Buspar started) continue naltrexone 50 mg qhs continue Buspar 5 mg BID (AM/afternoon) continue Seroquel XR 50 mg QHS, may consider continue gabapentin 600 mg BID (evening/HS) , increase dose to 600/1200 mg/d) consider AM dosing Patient has a number of nutritional deficiencies/insufficiencies - cont to encourage improvements in diet continue vitamin B12 daily continue vitamin D weekly 50,000 IU/weekly pending start on nicotine patch, to help with cutting back on nicotine use which is likely impairing his appetite D/c trazodone 100 mg (unclear benefit mercy given DI, AE), WB XL is suppressing appetite too much tapered off Seroquel 50-100 mg at night (down from 400 mg/d on admission) EKG reviewed VS: (01/09/25) 123/80; 76 bpm - on 3 mg/d of guanfacine - will plan to titrate to 4-5 mg/d as tolerated next week Patient educated on: diagnosis, medication risk/benefits, substance abuse and medical condition Informed Consent: understands Reason for contiued partial hosp. stay Substantial Risk for: inability to function, rapid decompensation and med/psych decompensation Certification I certify that partial hospital treatment is medically necessary due to the symptoms and problems resulting from the patient's mental illness and the failure to treat the patient at the partial hospital level of care would likely result in the patient requiring inpatient psychiatric care which could not be prevented at a less intensive level of care. Total time managing care of this patient today _30___ minutes. Discharge Plan Discharge Attending provider: Allie Langley Additional Instructions: If you change your mind and plan to stay in the area call [facility] for a new PCP appointment. Office # [phone]. [facility] Location [address] [facility]. [id number]. Medications: New naltrexone 50 mg tablet 25 - 50 mg PO .QHS Qty: 20 0RF bupropion HCl 100 mg tablet sustained-release 12 hr 100 mg PO QAM Qty: 20 0RF guanfacine 2 mg tablet extended release 24 hr 2 mg PO DAILY Qty: 30 0RF gabapentin 600 mg tablet 600 mg PO TID Qty: 30 0RF ergocalciferol (vitamin D2) [Vitamin D2] 1,250 mcg (50,000 unit) capsule 1,250 mcg PO QWEEK Qty: 8 0RF mecobalamin (vitamin B12) [B12 Active] 1,000 mcg tablet,chewable 1,000 mcg PO BID Qty: 60 1RF magnesium glycinate 100 mg magnesium capsule 200 mg PO BEDTIME Qty: 60 0RF nicotine 14 mg/24 hr patch 24 hour 1 patch transdermal Q24H Qty: 14 0RF Rx Instructions: apply one patch to skin daily in AM, remove patch every night mecobalamin (vitamin B12) [B12 Active] 1,000 mcg tablet,chewable 1,000 mcg PO DAILY Qty: 30 1RF zinc citrate 11 mg tablet,chewable 11 mg PO .daily in evening Qty: 30 0RF magnesium glycinate 100 mg tablet 300 mg PO BEDTIME Qty: 90 1RF buspirone 10 mg tablet 10 mg PO BID Qty: 30 0RF Rx Instructions: start 1/2 tablet twice daily (in AM and 5pm) x 2 days, then increase to 1 tablet twice daily (in AM and 5pm) hydroxyzine pamoate 50 mg capsule 50 mg PO QID PRN (Reason: sleep, anxiety) Qty: 30 0RF aripiprazole 2 mg tablet 2 mg PO DAILY Qty: 30 0RF Changed quetiapine 50 mg tablet extended release 24 hr 50 mg PO BID Qty: 30 0RF guanfacine 2 mg tablet extended release 24 hr 2 mg PO BID Qty: 30 0RF mirtazapine 7.5 mg tablet 7.5 mg PO DAILY PRN (Reason: appetite) Qty: 30 0RF citalopram 20 mg tablet 30 mg PO BEDTIME Qty: 45 0RF aripiprazole 5 mg tablet 7.5 mg PO BEDTIME Qty: 23 0RF Discontinued quetiapine [Seroquel] 100 mg Tablet 200 mg PO BEDTIME Rx Instructions: Take 2 tabs at bedtime. mirtazapine 45 mg Tablet 45 mg PO BEDTIME quetiapine [Seroquel] 50 mg Tablet 50 mg PO BID PRN (Reason: Anxiety) Stand Alone Forms: Patient Portal Discharge page Print Language: Yoruba
--- NOTE | 2025-01-25 09:25 | PC.NURSE ---
Valeriy called and left a message with [facility] litigation secretary stating he felt sick this morning and would not be in today. I called Valeriy to f/u and was not able to get a hold of him or leave a voice mail message as his voice mail is full.
--- NOTE | 2025-01-25 23:40 | PM.EVENT ---
Event Note Date of Service: 01/26/25 Event Note: Patient called out of program this morning. I was able to reach him later in the morning. He started on clonidine which really knocked me out says he was very surprised especially given his high tolerance for sleep medications until this point (eg trazodone 150 mg, hydroxyzine 200 mg, Seroquel 300 mg). He slept very hard and said had he anticipated that he would have taken the medication a little earlier. (Didnt take until midnight). He admits he is feeling guilty he missed program but says he is not crying this time over it . Still he is a little bummed out because he is unsure what else he will do with his day. Down time, particularly alone time, continues to be very difficult for him but is not getting stuck and feeling more stable. His mood is okay. A little lower but I'm still fine . Says it could be the citalopram being lowered from 30 to 20mg, but says it may just be that he is still tired and that tends to drag his mood bit, in addition to feeling of guilt. On a positive note, all the excessive sweating from the previous 2 days has resolved completely. Likely due to serotonin, since addition of buspirone to citalopram. Denies any SI. PLAN: cont mirtazapine 7.5 mg in qAM for appetite stim cont Wellbutrin SR 100 mg qAM cont Intuniv 3 mg qAM cont Buspar 5 mg qAM (may consider increasing toward 10 mg tomorrow) cont Buspar 5 mg qd afternoon cont gabapentin 300-600 mg qd afternoon/evening at 5pm PRN anxiety cont Intuniv 1 mg qd afternoon/evening at 5pm cont Abilify 2 mg qd afternoon/evening at 5pm increase ABilify to 7.5 mg tonight (with anticipation perhaps to discont afternoon dose later this week) cont citalopram at 20 mg qhs (sweating on 30 mg plus Buspar 10 mg/d) cont naltrexone 50 mg qhs cont gabapentin 1200 mg qhs (perhaps can be lowered now that pt responding to clonidine) cont clonidine 0.1 mg qhs PRN sleep cont vitamine b12 1000mcg/d for deficiency cont vitamin D2 Time Spent With Patient Time: Total time managing care of this patient today ____ minutes.
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
--- NOTE | 2025-02-03 09:28 | PC.NURSE ---
Dr. Langley aware of EKG: NSR Rightward [place], Incomplete Bundle Branch Block. No new orders.
== END 2025-01-27 23:59 | disposition home or self-care (01) ==
LOC: HO.PHPA 10:30
PROVIDERS: Visit Provider Psychiatry & Neurology Psychiatry
DX: F41.1 Generalized anxiety disorder (principal); F32.2 Major depressive disorder, single episode, severe without psychotic features; F63.9 Impulse disorder, unspecified; F90.9 Attention-deficit hyperactivity disorder, unspecified type; F17.200 Nicotine dependence, unspecified, uncomplicated; F10.11 Alcohol abuse, in remission; F12.99 Cannabis use, unspecified with unspecified cannabis-induced disorder; E53.8 Deficiency of other specified B group vitamins; Z79.899 Other long term (current) drug therapy
CPT/HCPCS: 80307; 90791; 90853

== ENCOUNTER 2025-01-31 13:31 | Outpatient (RCR) | payer OTHER, SELFPAY ==
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
--- NOTE | 2025-02-04 18:53 | PM.EVENT ---
Event Note Date of Service: 02/05/25 Event Note: Checked in this evening with patient and also spoke with his mother this afternoon. Patient continues to punch himself aggressively in the head repeatedly for 10 or more minutes at a time, on and off, all day long. He is agitated, angry, sad and despairing, that his (ex)girlfriend wont talk to him anymore. He reports being in a lot of pain but has been refusing any ibuprofen that his mother has been offering. I hate myself. I hate everything about me and what I did. I don't deserve to feel better He locked himself in a room last night and was crying uncontrollably, mom was trying to get in to talk to him but he would not let her in, locked her out and was just crying inconsolably and repeatedly punching himself until 4am. He says his body feels jacked up on adrenaline from all the punching, and says he cant stop shaking and is restless and agitated. He is struggling to do anything, cant eat or shower or go anywhere. He doesnt want to be around anyone. Aside from compulsively hitting his head, he says he has he has the thought and urge to start bashing his head into the wall (which he has never done before). He expresses passive SI thoughts of not wanting to exist anymore (which is new) in fact he has never expressed any passive SI since he started PHP/IOP last month. He was difficult to engage and was crying uncontrollably, repeatedly making self-degrading comments about himself and could be heard punching his head constantly while on the phone. His father kicked him out of the house on after he was uncontrollably punching himself in the face. He has been sleeping on the couch at his mother's house. His mother tells me she is at her wits end how to help him. He refused to go to [facility] all week despite her earnest efforts to get him there on Thursday. He says he is not willing to return to [facility] and in fact says he wants to stop taking any medication even despite acknowledging he was doing better over a week ago when he was attending the program and before stopping the naltrexone, lowering his other medications. He remains conflicted and struggles with the need for treatment/medication, but admits he is also struggling since stopping some of the medications. Continued excessive use of nicotine and cannabis all day long also complicate treatment and impair appetite. I suggest to patient that he may need to be admitted to the hospital if he cant stop punching himself, which initially angered him and says he refuses to go in the hospital. He says he would rather take something to help him, rather than go inpatient. He had tried taking Seroquel like we discussed last night, took 200 mg last night and has taken 100 mg twice so far today but says this no longer works for him, and says it made him feel worse and still was unable to sleep until 4am. He is agreeable to trying Depakote this evening to see if this can curb some of the impulsivity, self-harm, agitation, aggression and help with sleep. Per our previous discussion on 01/27 (when patient was in program) we discussed potential treatment with Lamictal and had planned to start on this upon his return to [facility] this past week 01/30-, however he had called out of the program all week. He says he would like to start on this medication now, because he hates citalopram, and antidepressants in general. He is okay with Wellbutrin (but has had difficulty titrating the dose due to poor appetite, and continues to take Wellbutrin on empty stomach without eating first, also appetite further suppressed as he has not been able to cut back on his nicotine use, vaping from the moment he wakes up. He is sick of taking lots of meds and says he just wants to be on one medication. Mom also shares history of struggles with depression and mood lability, and has done well in past on Lamictal and Seroquel . Mom and patient is agreeable with plan. Mom is encouraged to call crisis for wellness check tonight if patient continues to struggle or if symptoms worsen or is at further risk of harm to self, or to others. DSM DIAGNOSES: 1. Mood Disorder (likely MDD with severe mood dysregulation 2/t SIMD, ADHD and characterological contributions) 2. Impulse Control Disorder, unspecified (hx strongly suggestive of ADHD, combined type) 3. Generalized Anxiety Disorder (compounded by chronic substance dependence) 4. Cannabis use disorder, severe ? (r/o cannabis-induced depression) 5. Nicotine use disorder (vaping), mod-severe? (r/o nicotine-induced anxiety) 6. Alcohol use disorder, in early remission 7. Acute stress and trauma-related disorder vs borderline personality features (with chronic instability in self-image, rejection sensitivity, high impulsivity/SIB, unstable emotions) PLAN: agrees to Depakote as trial to target impulsive self-harm, self-aggression/agitation, unstable mood (Depakote 250-500 mg tonight, if tolerated will continue as 250 mg in AM and 500 mg QHS tomorrow until behaviors better regulated) start lamotrigine 25 mg daily (titrate by 25 mg/d q2 weeks until therapeutic, if tolerated/effective may eventually replace Abilify, Wellbutrin) cont Abilify 5 mg BID incr Wellbutirin SR from 100 mg to 150 mg qam (tomorrow) cont guanfacine 3 mg QAM (consider whether incr to 4 mg) cont naltrexone 50 mg qhs cont clonidine 0.1 mg QHS PRN sleep cont gabapentin 600 TID mg PRN anxiety (usually 600 mg in evening prn anxiety, 600-1200 mg qhs prn sleep) taper off citalopram (per patient pref d/t sexual side effects) patient would benefit from DBT Time Spent With Patient Time: Total time managing care of this patient today _45___ minutes.
--- NOTE | 2025-02-05 20:05 | P.EN_ITS ---
Event Note Date of Service: 02/05/25 Event Note: I cant do this anymore. I don't want to exist anymore . Reached out to check in with patient this afternoon, who has been struggling with self harming punching self in the head for past 3 days. Relapsed on with impulsive SHB after 5 weeks in context of argument with his father. Got kicked out of house and has been sleeping on couch at his mother's house since night. . We decided to trial Depakote 500 mg last night to target repeated self harming. He reportedly had a quieter night and eventually fell asleep. Slept through the night. Still feeling depressed, sad, this morning, feels stuck at home, increasingly isolative, and says he is just not able to make any effort to do anything for himself. Has not eaten today, does not want to eat. Not helping that he is taking Wellbutrin on empty stomach, continues to be reminded he needs to eat for this meds to work. He took Depakote 250 mg this morning, didn't hit himself earlier in the day, but admits he feels like punching himself all day long and just did a short time ago. Continues to report worsening mood lability, depression, feeling more profoundly hopeless, helpless increasing thoughts of passive SI without plan. He says he is starting to accept going inpatient I cant live like this. It would be easier not to exist. Living is too hard. I dont want to be here anymore . He is still not willing to return to [facility]. Patient was eventually agreeable to go to the ED on voluntary section 12, his father is willing to drive him in. He is aware I will be faxing over paperwork to [facility] anticipating his arrival and they will expect him to arrive soon. Patient is agreeable with plan. Since patient was only on Depakote for 2 doses, will hold off continuing that on current med list. He is to continue with his other medications as well as Lamictal which was recently started to target depression, mood symptoms, emotional reactivity, mood lability, which is part of his joint terminal attack controller plan to titrate up on Lamictal, and eventually could taper off other medications (antidepressant, mood stabilizers) given patient preference for monotherapy and resistance to treatment. CURRENT MEDICATIONS: Wellbutrin SR 100 mg qam guanfacine ER 3 mg qam Lamictal 25 mg qam Abilify 5 mg BID naltrexone 50 mg qhs gabapentin 600 mg BID PRN anxiety gabapentin 600-1200 mg PRN sleep clonidine 0.1 mg qhs PRN sleep Time Spent With Patient Time: Total time managing care of this patient today ___60_ minutes.
== END 2025-01-31 23:59 | disposition home or self-care (01) ==
LOC: HO.IOP 13:31
PROVIDERS: Visit Provider Psychiatry & Neurology Psychiatry
DX: F10.90 Alcohol use, unspecified, uncomplicated (principal); F12.90 Cannabis use, unspecified, uncomplicated; F33.2 Major depressive disorder, recurrent severe without psychotic features; F41.1 Generalized anxiety disorder
CPT/HCPCS: 90791

== ENCOUNTER 2025-02-05 19:39 | Inpatient (IN) | payer OTHER, SELFPAY ==
[2025-02-05 20:12] VITALS: BP 146/85; PULSE 101; RESP 18; TEMP 36.7; O2SAT 96; BMI 23.8
--- NOTE | 2025-02-05 20:12 | ED_ITS ---
HPI - Psych General Chief Complaint: Psychiatric Symptoms Stated Complaint: Crisis Time Seen by Provider: 02/05/25 21:02 Source: patient Limitations: no limitations History of Present Illness ED Provider: Patrizia Mcfadden PA-C HPI Narrative: 24-year-old male with a history of borderline personality disorder, disruptive impulse control and conduct disorder, ADHD, anxiety, depression, alcohol use disorder, marijuana use disorder, tobacco abuse who presents with SI. Patient has been performing self-harming behaviors such as hitting himself . Patient states he has been abstaining from alcohol, he has been sober for a month. He still is using marijuana. Denies HI. Related Data Home Medications ?Medication ?Instructions ?Recorded ?Confirmed aripiprazole 5 mg tablet (Abilify) 5 mg PO BID 02/05/25 02/05/25 bupropion HCl 100 mg tablet,12 hr 100 mg PO QAM 02/05/25 02/05/25 sustained-release clonidine HCl 0.1 mg tablet 0.1 mg PO BEDTIME PRN Insomnia 02/05/25 02/05/25 gabapentin 600 mg tablet 600 mg PO TID PRN Pain 02/05/25 02/05/25 guanfacine 3 mg tablet,extended 3 mg PO QAM 02/05/25 02/05/25 release 24 hr lamotrigine 25 mg tablet (Lamictal) 25 mg PO QAM 02/05/25 02/05/25 naltrexone 50 mg tablet 50 mg PO BEDTIME 02/05/25 02/05/25 Allergies Allergy/AdvReac Type Severity Reaction Status Date / Time No Known Allergies Allergy Verified 02/05/25 20:12 Review of Systems 2 Review of Systems: Yes all other systems are reviewed and are negative Constitutional: Constitutional: Denies fatigue and Denies fever(s) Cardiovascular: Cardiovascular: Denies chest pain and Denies dyspnea Respiratory: Respiratory: Denies cough and Denies dyspnea Gastrointestinal: Gastrointestinal: Denies abdominal pain, Denies nausea and Denies vomiting Musculoskeletal: Musculoskeletal: Denies back pain Endocrine: Endocrine: Denies fatigue PMFSH Past Medical History Attestation statement: The following information was validated with the patient. Medical History (Updated 02/06/25 @ 05:07 by Allie Langley MD) Cannabis use disorder Cannabis use with cannabis-induced disorder Nicotine dependence with nicotine-induced disorder Rupture of testis Social History Social History Household Members: Children Patient Tobacco Use Status: Current everyday Tobacco user Tobacco use type: Cigarette Advance Directives: No Advance Directives Information Provided: No Do you have a plan to hurt others: No Plan Physical Exam 2 Vital Signs: Vital Signs: Last Vital Signs Temp 98.2 F 02/06/25 04:16 Pulse 64 02/06/25 04:16 Resp 17 02/06/25 04:16 BP 158/74 H 02/06/25 04:16 Pulse Ox 98 02/06/25 04:16 O2 Del Method Room Air 02/06/25 04:16 BMI result Body Mass Index 23.8 Const: Other: Alert Orientation/consciousness: patient oriented x3 Resp: Effort & Inspection: normal respiratory effort Cardio: Other: Normal peripheral perfusion Skin: Other: Warm dry no rash Neuro: General: patient oriented x3, gait normal, no focal motor deficits and CN's II-XI intact bilaterally Psych: Other: Cooperative here in the ER Course Course Course Narrative: This is an RME performed by Raffy Anderson CNP: Additional HPI, ROS, PE not included below will be deferred to primary provider. patient is a 24-year-old male who presents emergency department for evaluation endorsing self-harm behavior hitting himself particularly head without LOC or use of anticoagulants. Reports that this is been ongoing for many years. States it typically was in regards to drinking alcohol but states that he last drank a few months ago. Admits to marijuana usage otherwise denies recreational drug usage. Denies SI/HI. Plan: Brought back to main ED room, serum labs, toxicology Reevaluation(s) Reevaluation #1: Spoke with the care team, the patient was going to be an inpatient psychiatric bed search Reevaluation #2: 02/06/25 7am observation continued, VS stable, no acute events overnight, inpatient S12 bed search in place [facility] Medications Administered Generic Name Dose Route Start Last Admin Trade Name Freq PRN Reason Stop Dose Admin Aripiprazole 5 mg 02/05/25 22:00 02/05/25 22:35 Aripiprazole 5 Mg Tablet PO 5 mg BID LOYD Administration Clonidine HCl 0.1 mg 02/05/25 22:00 02/06/25 04:13 Clonidine Hcl 0.1 Mg Tablet PO 0.1 mg BEDTIME PRN Administration Insomnia Protocol Gabapentin 600 mg 02/05/25 22:01 02/06/25 04:13 Gabapentin 600 Mg Tablet PO 600 mg TID PRN Administration Pain, Moderate(Pain Scale 4-6) Lamotrigine 25 mg 02/05/25 22:00 02/05/25 22:34 Lamotrigine 25 Mg Tablet PO 25 mg DAILY LOYD Administration Naltrexone HCl 50 mg 02/05/25 22:15 02/05/25 22:34 Naltrexone Hcl 50 Mg Tablet PO 50 mg BEDTIME LOYD Administration Discontinued Medications Generic Name Dose Route Start Last Admin Trade Name Thom PRN Reason Stop Dose Admin Nicotine 21 mg 02/05/25 22:18 02/05/25 22:34 Nicotine 21 Mg Patch.[id number] TRANSDERMA 02/05/25 22:19 21 mg ONCE ONE Administration Nicotine Polacrilex 4 mg 02/05/25 22:18 02/05/25 22:35 Nicotine Polacrilex Lozenge 4 Mg Lozenge BUCCAL 02/05/25 22:19 4 mg ONCE ONE Administration Medical Decision Making Medical Decision Making MDM Narrative: 24-year-old male with a history of borderline personality disorder, disruptive impulse control and conduct disorder, ADHD, anxiety, depression, alcohol use disorder, marijuana use disorder, tobacco abuse who presents with SI. Patient has been performing self-harming behaviors such as hitting himself . Patient states he has been abstaining from alcohol, he has been sober for a month. He still is using marijuana. Denies HI. Problem: Polysubstance abuse, psychiatric illness History: Per patient I have considered the following differential diagnoses: SI, HI, decompensated psychiatric illness, drug/alcohol intoxication Plan: Screening labs including a serum ethanol and drug screen we will be obtained, care team consult was placed. I have independently reviewed the following tests: Labs: No leukocytosis, not anemic, no electrolyte abnormality, U tox positive for marijuana, alcohol negative Lab Data 02/05/25 21:05 02/05/25 21:05 Labs: Lab Results 02/05/25 02/05/25 Range/Units 21:04 21:05 WBC 9.2 (4.8-10.8) X10*3/uL RBC 5.27 (4.60-5.80) X10*6/uL Hgb 15.6 (14.0-18.0) g/dl Hct 44.1 (42.0-52.0) % MCV 83.7 (80.0-98.0) fL MCH 29.6 (27.0-33.0) pg MCHC 35.4 (31.0-36.0) g/dl RDW 13.1 (11.0-16.0) % Plt Count 203 (160-400) X10*3/uL MPV 10.0 (9.4-12.4) fL Immature Gran % (Auto) 0.2 (0.0-0.4) % Neut % (Auto) 75.5 H (45-73) % Lymph % (Auto) 20.3 (20-40) % [place] % (Auto) 3.4 (2-11) % Eos % (Auto) 0.2 (0-4) % Baso % (Auto) 0.4 (0-2) % Lymph # (Auto) 1.9 (1.2-4.9) X10*3/uL [place] # (Auto) 0.3 (0.1-1.2) X10*3/uL Eos # (Auto) 0.0 (0.0-0.4) X10*3/uL Baso # (Auto) 0.0 (0.0-0.2) X10*3/uL Abs Immat Gran (auto) 0.02 (0.00-0.03) X10*3/uL Absolute Neuts (auto) 7.0 (2.0-8.3) x10*3/uL Absolute Nucleated RBC 0.000 (0.0-0.012) X10*3/uL Nucleated RBC % (auto) 0.0 (0.0-0.2) /100WBC Sodium 141 (135-145) mmol/L Potassium 3.8 (3.3-5.1) mmol/L Chloride 107 (96-108) mmol/L Carbon Dioxide 25 (22-29) mmol/L Anion Gap 13 (12-20) BUN 9 (9-16) mg/dL Creatinine 0.80 (0.5-1.4) mg/dL Estim Creat Clear Calc 162.2 Estimated GFR > 60 Random Glucose 120 H (60-115) mg/dL Calcium 9.7 (8.4-10.2) mg/dL Total Bilirubin 0.4 (0.0-1.0) mg/dL AST 23 (5-37) U/L ALT 21 (0-40) U/L Alkaline Phosphatase 57 (39-117) U/L Total Protein 7.3 (6.5-8.0) g/dL Albumin 4.5 (3.5-5.0) g/dL Urine Color Yellow Urine Appearance Clear Urine pH 7.0 (5.0-9.0) Ur Specific [place] 1.015 (1.005-1.025) Urine Protein Negative (Neg-Trace) mg/dL Urine Glucose (UA) Negative (Negative) mg/dL Urine Ketones Trace (Negative) mg/dL Urine Blood Negative (Negative) Urine Nitrite Negative (Negative) Ur Leukocyte Esterase Negative (Negative) Urine Opiates Screen Not Detected (Not Detect) Ur Buprenorphine Scrn Not Detected (Not Detect) ng/mL Ur Oxycodone Screen Not Detected (Not Detect) ng/mL Urine Methadone Screen Not Detected (Not Detect) ng/mL Urine Fentanyl Screen Not Detected (Not Detect) Ur Barbiturates Screen Not Detected (Not Detect) Ur Phencyclidine Scrn Not Detected (Not Detect) Ur Amphetamines Screen Not Detected (Not Detect) U Benzodiazepines Scrn Not Detected (Not Detect) Urine Cocaine Screen Not Detected (Not Detect) U Marijuana (THC) Screen POSITIVE H (Not Detect) Ethyl Alcohol < 10 mg/dL Discharge Plan Discharge Clinical Impression: Suicidal ideation Patient Disposition: Still a Patient Prescriptions: No Action clonidine HCl 0.1 mg Tablet 0.1 mg PO BEDTIME PRN (Reason: Insomnia) gabapentin 600 mg Tablet 600 mg PO TID PRN (Reason: Pain) naltrexone 50 mg Tablet 50 mg PO BEDTIME bupropion HCl 100 mg tablet sustained-release 12 hr 100 mg PO QAM lamotrigine [Lamictal] 25 mg Tablet 25 mg PO QAM aripiprazole [Abilify] 5 mg Tablet 5 mg PO BID guanfacine 3 mg Tablet Extended Release 24 Hr 3 mg PO QAM Interventions: [place]-Suicide Risk Severity Scale Last Done: 02/05/25 20:17 Print Language: Bangladeshi
[2025-02-05 21:10] LABS: MANUAL DIFF FLAG NO
[2025-02-05 21:11] LABS: Basophils Percent Auto 0.4 % (0-2); Eosinophils Percent Auto 0.2 % (0-4); Hematocrit 44.1 % (42.0-52.0); Hemoglobin 15.6 g/dl (14.0-18.0); Imm Gran Abs Auto 0.02 X10*3/uL (0.00-0.03); Imm Gran Pct Auto 0.2 % (0.0-0.4); Lymphocytes Absolute Auto 1.9 X10*3/uL (1.2-4.9); Lymphocytes Percent Auto 20.3 % (20-40); Mean Corpuscular HGB Conc 35.4 g/dl (31.0-36.0); Mean Corpuscular Hemoglobin 29.6 pg (27.0-33.0); Mean Corpuscular Volume 83.7 fL (80.0-98.0); Monocytes Absolute Auto 0.3 X10*3/uL (0.1-1.2); Monocytes Percent Auto 3.4 % (2-11); Neutrophils Percent Auto 75.5 % (45-73); Platelet Count 203 X10*3/uL (160-400); Red Blood Count 5.27 X10*6/uL (4.60-5.80); Red Cell Distribution Width 13.1 % (11.0-16.0); White Blood Count 9.2 X10*3/uL (4.8-10.8)
[2025-02-05 21:13] LABS: Appearance Urine Clear; Color Urine Yellow; Glucose Urine UA Negative (Negative); Leukocyte Esterase Urine Negative (Negative); Nitrite Urine Negative (Negative); Specific Gravity - Urine 1.015 (1.005-1.025); Urine Blood Negative (Negative); Urine Ketones Trace mg/dL (Negative); Urine Protein Negative (Neg-Trace)
[2025-02-05 21:24] LABS: Amphetamine Screen Urine Not Detected (Not Detect); Barbiturates, Urine Not Detected (Not Detect); Benzodiazepines Screen Urine Not Detected (Not Detect); Buprenorphine Scr Not Detected (Not Detect); Cannabinoid Screen Urine POSITIVE (Not Detect); Cocaine Screen Urine Not Detected (Not Detect); Fentanyl, urine Not Detected (Not Detect); Methadone Screen, Urine Not Detected (Not Detect); Opiate Screen Urine Not Detected (Not Detect); Oxycodone Screen Urine Not Detected (Not Detect); Phencyclidine Screen Urine Not Detected (Not Detect)
[2025-02-05 21:30] LABS: Alanine Aminotransferase 21 U/L (0-40); Albumin Level 4.5 g/dL (3.5-5.0); Alkaline Phosphatase 57 U/L (39-117); Anion Gap 13 (12-20); Aspartate Amino Transferase 23 U/L (5-37); Bilirubin Total 0.4 mg/dL (0.0-1.0); Blood Urea Nitrogen 9 mg/dL (9-16); Calcium 9.7 mg/dL (8.4-10.2); Carbon Dioxide 25 mmol/L (22-29); Chloride 107 mmol/L (96-108); Creatinine Clr Calc Pharmacy 162.2; Estimated Glomerular Filt Rate > 60; Ethanol < 10 mg/dL; Glucose Random 120 mg/dL (60-115); Potassium 3.8 mmol/L (3.3-5.1); Sodium 141 mmol/L (135-145); Total Protein 7.3 g/dL (6.5-8.0)
--- NOTE | 2025-02-05 22:06 | MHC.CARE ---
Allie ([facility]; [phone]) reports Pt has a hx of IPLOC. Been involved with PHP since December due to depression and alcohol use. Hx of self-harm by punching self in the face. Has been inconsistent with treatment, however made good progress and was transitioned to IOP. This past week, Pt did not present and staff has been checking-in with him over the phone daily. Pt got kicked out of his dad?s home, struggling with medications, engaging in ETOH and self-harm (punching self). Allie spoke with Pt over the phone today and Pt expressed passive SI.
--- NOTE | 2025-02-05 22:10 | PC.NURSE ---
Care team in to see patient at this time.
[2025-02-05] MEDS: Naltrexone HCl 50 MG TABLET PO (22:34)
[2025-02-05] MEDS: Nicotine 21 MG PATCH.TD24 TRANSDERMA (22:34)
[2025-02-05] MEDS: lamoTRIgine 25 MG TABLET PO (22:34)
[2025-02-05] MEDS: ARIPiprazole 5 MG TABLET PO (22:35)
[2025-02-05] MEDS: Nicotine Polacrilex Lozenge 4 MG LOZENGE BUCCAL (22:35)
[2025-02-06] VITALS (8 sets, daily range): BP systolic 128–177; BP diastolic 62–82; PULSE 64–79; RESP 17–18; TEMP 36.6–36.8; O2SAT 98–99; BMI 23.3
--- NOTE | 2025-02-06 | ECG_ITS ---
Test Reason : check qtc Blood Pressure : */* mmHG Vent. Rate : 63 BPM Atrial Rate : 63 BPM P-R Int : 140 ms QRS Dur : 100 ms QT Int : 406 ms P-R-T Axes : 62 93 37 degrees QTcB Int : 415 ms Normal sinus rhythm Rightward axis Incomplete right bundle branch block Borderline ECG When compared with ECG of 20-Jan-2025 13:48, No significant change was found Referred By: Patrizia Mcfadden Electronically Signed By: LETTY DARLING
[2025-02-06] MEDS: cloNIDine HCL 0.1 MG TABLET PO ×4 (04:13→23:58)
[2025-02-06] MEDS: Gabapentin 600 MG TABLET PO ×2 (04:13→22:35)
--- NOTE | 2025-02-06 06:39 | PC.NURSE ---
Patient slept through the night, no distress observed/reported, 15 minutes safety check, no behavior and safety concerns, disposition per care team section-12 inpatient bed search, will continue to monitor
--- NOTE | 2025-02-06 07:15 | PC.NURSE ---
Assumed care of patient at 0645, patient appears to be in no apparent distress this am, calm and cooperative, alert and oriented x4. Patient requesting nicotine lozenge this am. Continue plan of care for inpatient bedsearch
[2025-02-06] MEDS: Nicotine Polacrilex Lozenge 4 MG LOZENGE BUCCAL ×7 (07:21→22:35)
[2025-02-06] MEDS: guanFACINE HCl ER 1 MG TAB.ER.24H 3 MG PO (08:44)
[2025-02-06] MEDS: lamoTRIgine 25 MG TABLET PO (08:44)
[2025-02-06] MEDS: ARIPiprazole 5 MG TABLET PO ×2 (08:45→20:59)
[2025-02-06] MEDS: buPROPion HCl XL 150 MG TAB.ER.24H 100 MG PO (08:45)
--- NOTE | 2025-02-06 13:16 | PC.NURSE ---
Patient has remained calm and cooperative, showered, conversing with staff
--- NOTE | 2025-02-06 14:04 | P.HPPS_ITS ---
HPI Date of Service: 02/06/25 Chief Complaint: DEPRESSION/SI Sources of Information: patient interviewed, chart reviewed and crisis/core team assessment reviewed HPI Subjective Notes: Espinoza Warning, Conditional Voluntary and 3 Day Narrative: Patient is a 24-year-old male, recent college graduate with history of depression, ADHD, alcohol use disorder, who has been attending [facility] program, who presents for episode overwhelming anxiety, self loathing resulting in him punching himself in the face. Prior to partial day program, patient was very depressed, not eating, not attending to ADLs following painful break-up with his long-term girlfriend in October 2024. Patient reports that he had been doing much better at [facility] with medication regimen adjusted there. He was living at home and was doing well but got into an argument with his father; his father, trying to be helpful, challenged him on his motivation which patient found very triggering, feeling that his father was minimizing the extent of his struggles with depression anxiety; patient decided to go stay at his mom for a while but also got into an argument with her which resurfaced chronic feelings of self loathing, and that he is never good enough which began to dysregulated him; he then saw a picture of his ex-girlfriend which catapulted him into full-blown dysregulated emotions and he started punching himself in the face. Patient called his father who brought him to the hospital. Patient denies SI. Denies manic symptoms. Patient is asking for help further assessing medication and for an opportunity to emotionally stabilize so he can remain safe. Past Psychiatric History: No [facility], PHP, respite, detox/rehab admissions SA: denies SIB: hitting/punching self in head Aggression: toward self but denies any aggressive behaviors toward others Says he was hitting himself in the head in front of his exGF which resulted in her breaking up w him Impulsive behaviors, heavy use of online porn, dx w ADHD as a teen Denies any legal hx Psychiatrist: Dr. Ramon Scruggs Therapist: none PCP: none Previous trials: SSRI trial x1 during 1st year of college 4 yrs ago (cant recall which) I didn't take it seriously non-adherent, Adderall in the past CURRENT MEDICATIONS: mirtazapine 45 mg qhs quetiapine 50 mg BID prn agitation (utilizes usually 1-2x/d) quetiapine 200 mg qhs Medical Evaluation Reviewed: Yes [facility] Medical History (Updated 02/14/25 @ 07:52 by Allie Langley MD) Nicotine dependence with nicotine-induced disorder Cannabis use disorder Cannabis use with cannabis-induced disorder Rupture of testis Family History: Mom: bipolar, depression Father's side of family with alcohol addiction, not in dad Denies any suicides in family Social History: Currently staying at home with parents in [place], although he still maintains an apartment in [place]. He walked for graduation 6 weeks ago but says he technically has 3 credits to complete in order to officially complete his degree. Reports being diagnosed with ADHD (namely inattentive type), says he was a B student, sometimes Cs, but says cannabis use in high school really impacted his grades, and continues to underperform in college due to prioritizing alcohol use over his studies Substance History: Recently sober from alcohol for several weeks; history of cocaine use Diagnostics Vital Signs (24Hr): Vital Signs - 24 hr 02/05/25 20:12 02/06/25 04:13 02/06/25 04:16 Temperature 98.1 F 98.2 F Pulse Rate 101 H 64 Respiratory Rate 18 17 Blood Pressure 146/85 H 158/78 H 158/74 H Pulse Oximetry 96 98 Oxygen Delivery Method Room Air Room Air 02/06/25 11:56 Temperature 97.9 F Pulse Rate 65 Respiratory Rate 18 Blood Pressure 158/69 H Pulse Oximetry 98 Oxygen Delivery Method Room Air BMI result Body Mass Index 23.3 Labs 02/05/25 21:05 02/06/25 15:36 Labs: Laboratory Results - last 48 hr 02/05/25 02/05/25 21:04 21:05 WBC 9.2 RBC 5.27 Hgb 15.6 Hct 44.1 MCV 83.7 MCH 29.6 MCHC 35.4 RDW 13.1 Plt Count 203 MPV 10.0 Immature Gran % (Auto) 0.2 Neut % (Auto) 75.5 H Lymph % (Auto) 20.3 Perry % (Auto) 3.4 Eos % (Auto) 0.2 Baso % (Auto) 0.4 Lymph # (Auto) 1.9 Perry # (Auto) 0.3 Eos # (Auto) 0.0 Baso # (Auto) 0.0 Abs Immat Gran (auto) 0.02 Absolute Neuts (auto) 7.0 Absolute Nucleated RBC 0.000 Nucleated RBC % (auto) 0.0 Sodium 141 Potassium 3.8 Chloride 107 Carbon Dioxide 25 Anion Gap 13 BUN 9 Creatinine 0.80 Estim Creat Clear Calc 162.2 Estimated GFR > 60 Random Glucose 120 H Calcium 9.7 Total Bilirubin 0.4 AST 23 ALT 21 Alkaline Phosphatase 57 Total Protein 7.3 Albumin 4.5 Urine Color Yellow Urine Appearance Clear Urine pH 7.0 Ur Specific [place] 1.015 Urine Protein Negative Urine Glucose (UA) Negative Urine Ketones Trace Urine Blood Negative Urine Nitrite Negative Ur Leukocyte Esterase Negative Urine Opiates Screen Not Detected Ur Buprenorphine Scrn Not Detected Ur Oxycodone Screen Not Detected Urine Methadone Screen Not Detected Urine Fentanyl Screen Not Detected Ur Barbiturates Screen Not Detected Ur Phencyclidine Scrn Not Detected Ur Amphetamines Screen Not Detected U Benzodiazepines Scrn Not Detected Urine Cocaine Screen Not Detected U Marijuana (THC) Screen POSITIVE H Ethyl Alcohol < 10 Meds/Allergies Allergies Allergies Allergy/AdvReac Type Severity Reaction Status Date / Time No Known Allergies Allergy Verified 02/05/25 20:12 Mental Status Exam Mental Status Exam Narrative: Pt is alert and oriented; behavior is cooperative, friendly and calm; patient is not in distress; dressed in casual attire with unkempt hair, some periorbital bruising; mood is described as better and affect congruent; eye contact appropriate; Speech is normal rate, volume and prosody and not pressured; no psychomotor agitation/retardation present; thought process is organized and goal directed; Thought content is on tx; otherwise pertinent to relevant topics and without any delusional content, paranoid ideations or grandiosity; denies any SI/HI. Denies AVH and there is no evidence of perceptual disturbance. Patients insight and judgment appear intact. Assessment & Plan Assessment & Plan (1) SHAUNA (generalized anxiety disorder): Status: Acute Code(s): F41.1 - Generalized anxiety disorder (2) Social anxiety disorder: Status: Acute Code(s): F40.10 - Social phobia, unspecified (3) Attention-deficit hyperactivity disorder, unspecified type: Status: Acute Code(s): F90.9 - Attention-deficit hyperactivity disorder, unspecified type (4) MDD (major depressive disorder), recurrent severe, without psychosis: Status: Acute Code(s): F33.2 - Major depressive disorder, recurrent severe without psychotic features (5) Alcohol use disorder: Status: Acute Code(s): F10.90 - Alcohol use, unspecified, uncomplicated Plan Patient is a 24-year-old male, recent college graduate with history of depression, ADHD, alcohol use disorder, who has been attending [facility] program, who presents for episode overwhelming anxiety, self loathing resulting in him punching himself in the face. Prior to partial day program, patient was very depressed, not eating, not attending to ADLs following painful break-up with his long-term girlfriend in October 2024. Patient reports that he had been doing much better at [facility] with medication regimen adjusted there. He was living at home and was doing well but got into an argument with his father; his father, trying to be helpful, challenged him on his motivation which patient found very triggering, feeling that his father was minimizing the extent of his struggles with depression anxiety; patient decided to go stay at his mom for a while but also got into an argument with her which resurfaced chronic feelings of self loathing, and that he is never good enough which began to dysregulated him; he then saw a picture of his ex-girlfriend which catapulted him into full-blown dysregulated emotions and he started punching himself in the face. Patient called his father who brought him to the hospital. Patient denies SI. Denies manic symptoms. Patient is asking for help further assessing medication and for an opportunity to emotionally stabilize so he can remain safe. Formulation/clinical reasoning: Ground Host/Hostess discussed case with Dr. Langley, reviewed medication Patient has stabilized on Abilify 5 mg b.i.d., Wellbutrin SR 100 mg daily (does not tolerate XL), Intuniv and now being started on Lamictal. Discussed Depakote which helped patient sees to Self-harm. Taken off citalopram as SSRIs causing sexual side effects. Plan: CV; patient later signed 3 day notice Q 15 minute checks Continue Abilify 5 mg b.i.d. Continue Wellbutrin SR 100 mg daily Continue Lamictal 25 mg Continue Intuniv Will hold off on restarting Depakote and discuss with patient further Patient educated on: diagnosis, medication risk/benefits, substance abuse and therapeutic strategies Informed Consent: understands Reason for continued inpatient stay Substantial Risk for: rapid decompensation Statement Statement: I have reviewed the history and physical and performed a pertinent examination on my patient. No changes have occurred unless specified. If the History and Physical was not performed prior to admission, the Hospitalist's service will be consulted for completing the admission physical. Time Spent With Patient Time: Total time managing care of this patient today ____ minutes.
[2025-02-06] MEDS: Nicotine 21 MG PATCH.TD24 TRANSDERMA (14:31)
[2025-02-06 16:31] LABS: Alanine Aminotransferase 21 U/L (0-40); Albumin Level 4.7 g/dL (3.5-5.0); Alkaline Phosphatase 57 U/L (39-117); Anion Gap 12 (12-20); Aspartate Amino Transferase 25 U/L (5-37); Bilirubin Total 0.5 mg/dL (0.0-1.0); Blood Urea Nitrogen 8 mg/dL (9-16); Carbon Dioxide 27 mmol/L (22-29); Chloride 105 mmol/L (96-108); Creatinine Clr Calc Pharmacy 152.7; Estimated Glomerular Filt Rate > 60; Glucose Random 90 mg/dL (60-115); Potassium 3.9 mmol/L (3.3-5.1); Sodium 140 mmol/L (135-145); Total Protein 7.5 g/dL (6.5-8.0)
--- NOTE | 2025-02-06 16:57 | PC.ADMIT ---
Valeriy is a 24 yr old male admitted today on a Conditional Voluntary.? Valeriy has been in [facility] program & self-presented after expressing SI statements to his PHP provider. His documented history includes borderline personality disorder, disruptive impulse control and conduct disorder, ADHD, anxiety, depression, alcohol use disorder, marijuana use disorder.? Valeriy has been self-harming by means of punching himself (mostly in the face). On skin check, fading bruises are noted on bilateral temporal areas of his face and also a few small scabbed spots at his toenails. He states that picking his toenails & fingernails is a nervous habit.? Valeriy is A&Ox4, pleasant, engaged & cooperative with the admission process. He reports that when he gets upset he has little ability to control his anger and impulses.? He denies thoughts to harm others, he only harms himself.? When asked about past trauma, Valeriy endorses ?self-induced trauma while at college in [place] which makes that city a place he can never go to again.? He spoke of a break-up from his girlfriend in October.? Valeriy became visibly uncomfortable when discussing his ex-girlfriend, stating ?I just don?t want to discuss her?.? His living situation is stable (either staying at his mom?s or his dad?s) and he endorses positive family support.? At this time he denies active SI or self-harming urges & is able to contract for safety.? Valeriy states that he is happy to be here on M5. He feels ?safe & supported?.? He is open to the experience, looks forward to engaging in treatment and get on the best medications to help him, while working on healthier coping skills. Clonidine admin for anxiety with good effect.? Valeriy was oriented to the unit & placed on 15 min safety checks.? He has settled in with peers and playing cards in the kitchen.?
[2025-02-06] MEDS: Naltrexone HCl 50 MG TABLET PO (20:59)
[2025-02-06] MEDS: traZODone HCL 50 MG TABLET PO ×3 (20:59→23:51)
[2025-02-06] MEDS: hydrOXYzine HCL 25 MG TABLET PO (20:59)
[2025-02-07 08:00] VITALS: BP 130/58; PULSE 56; RESP 16; TEMP 36.4; O2SAT 98
[2025-02-07] MEDS: Nicotine Polacrilex Lozenge 4 MG LOZENGE BUCCAL ×5 (08:06→22:45)
[2025-02-07] MEDS: Nicotine 21 MG PATCH.TD24 TRANSDERMA (08:06)
[2025-02-07] MEDS: guanFACINE HCl ER 1 MG TAB.ER.24H 3 MG PO (08:07)
[2025-02-07] MEDS: ARIPiprazole 5 MG TABLET PO ×2 (08:07→20:33)
[2025-02-07] MEDS: cloNIDine HCL 0.1 MG TABLET PO ×4 (08:07→22:04)
[2025-02-07] MEDS: lamoTRIgine 25 MG TABLET PO (08:07)
[2025-02-07 08:48] LABS: Estimated Average Glucose 97 mg/dL; Hemoglobin A1C 131.7402 umol/L; Total Hemoglobin (HGBA1C) 4269.9667 umol/L
[2025-02-07 08:59] LABS: Cholesterol 183 mg/dL (<200); HDL Cholesterol 43 mg/dL (>40); LDL Cholesterol Calculated 119 mg/dL (<100); Triglycerides 106 mg/dL (<150)
[2025-02-07 09:14] LABS: TSH reflex Free T4 1.83 uIU/mL (0.32-4.0)
[2025-02-07 14:53] VITALS: BP 142/66; PULSE 66; RESP 16; TEMP 36; O2SAT 97
[2025-02-07 20:00] VITALS: BP 110/70; PULSE 98; RESP 16; TEMP 36.9; O2SAT 99
[2025-02-07] MEDS: Naltrexone HCl 50 MG TABLET PO (20:32)
[2025-02-07] MEDS: traZODone HCL 100 MG TABLET PO (20:33)
[2025-02-07 22:04] VITALS: BP 120/70
[2025-02-07] MEDS: hydrOXYzine HCL 25 MG TABLET PO (22:05)
[2025-02-08 08:00] VITALS: BP 105/63; PULSE 54; RESP 16; TEMP 36.3; O2SAT 99
[2025-02-08] MEDS: BUPROPION 150 MG 150 EACH PO (08:36)
[2025-02-08] MEDS: cloNIDine HCL 0.1 MG TABLET PO ×3 (08:36→22:35)
[2025-02-08] MEDS: guanFACINE HCl ER 1 MG TAB.ER.24H 3 MG PO (08:38)
[2025-02-08] MEDS: lamoTRIgine 25 MG TABLET PO (08:39)
[2025-02-08] MEDS: ARIPiprazole 5 MG TABLET PO ×2 (08:40→22:36)
[2025-02-08] MEDS: Nicotine 21 MG PATCH.TD24 TRANSDERMA (08:41)
[2025-02-08] MEDS: Nicotine Polacrilex Lozenge 4 MG LOZENGE BUCCAL ×6 (08:41→22:37)
[2025-02-08 15:36] VITALS: BP 118/54
--- NOTE | 2025-02-08 18:12 | HO.PSYCHPN ---
Subjective Subjective Date of Service: 02/08/25 Reason For Visit: DEPRESSION/SI Interim History: Met with patient; discussed with team Patient reports feeling better; says being on the unit, is giving him time to process his feelings and get himself under better control. Discussed medication management and patient agrees to remain on Abilify while Lamictal is being titrated; reviewed risks/side effects which patient understands. Discussed Depakote and patient feels that it should be restarted and scheduled rather than using as a p.r.n. for agitation. Mental Status Exam Mental Status Exam Narrative: Pt is alert and oriented; behavior is cooperative, friendly and calm; patient is not in distress; dressed in casual attire with unkempt hair, some periorbital bruising; mood is described as good and affect congruent; eye contact appropriate; Speech is normal rate, volume and prosody and not pressured; no psychomotor agitation/retardation present; thought process is organized and goal directed; Thought content is on tx; otherwise pertinent to relevant topics and without any delusional content, paranoid ideations or grandiosity; denies any SI/HI. Denies AVH and there is no evidence of perceptual disturbance. Patients insight and judgment fair Diagnostics Vital Signs (24Hr): Vital Signs - 24 hr 02/07/25 20:00 02/07/25 22:04 02/08/25 08:00 Temperature 98.5 F 97.4 F Pulse Rate 98 54 Respiratory Rate 16 16 Blood Pressure 110/70 120/70 105/63 Pulse Oximetry 99 99 Oxygen Delivery Method Room Air Room Air 02/08/25 15:36 Temperature Pulse Rate Respiratory Rate Blood Pressure 118/54 L Pulse Oximetry Oxygen Delivery Method BMI result Body Mass Index 23.3 Labs 02/05/25 21:05 02/06/25 15:36 Labs: Laboratory Results - last 48 hr 02/07/25 08:24 Estimat Average Glucose 97 Hemoglobin A1c % 5.0 Triglycerides 106 Cholesterol 183 LDL Cholesterol, Calc 119 H HDL Cholesterol 43 TSH 1.83 Medications Medications Current Medications Acetaminophen (Acetaminophen 325 Mg Tablet) 650 mg PO Q6H PRN PRN Reason: Headache/Pain, Scale 1-10 Al Hydroxide/Mg Hydroxide (Magnesium Hydrox/Alum Hydrox 30 Ml Oral.Susp) 30 ml PO Q6H PRN PRN Reason: Heartburn/Nausea Aripiprazole (Aripiprazole 5 Mg Tablet) 5 mg PO BID [facility] Last Admin: 02/08/25 08:40 Dose: 5 mg Clonidine HCl (Clonidine Hcl 0.1 Mg Tablet) 0.1 mg PO TID LOYD; Protocol Last Admin: 02/08/25 15:36 Dose: 0.1 mg Clonidine HCl (Clonidine Hcl 0.1 Mg Tablet) 0.1 mg PO Q4H PRN; Protocol PRN Reason: moderate anxiety/insomnia Last Admin: 02/07/25 22:04 Dose: 0.1 mg Gabapentin (Gabapentin 600 Mg Tablet) 600 mg PO TID PRN PRN Reason: Pain, Moderate(Pain Scale 4-6) Last Admin: 02/06/25 22:35 Dose: 600 mg Guanfacine HCl (Guanfacine Hcl Er 1 Mg Tab.Er.24h) 3 mg PO DAILY [facility] Last Admin: 02/08/25 08:38 Dose: 3 mg Hydroxyzine HCl (Hydroxyzine Hcl 25 Mg Tablet) 25 mg PO Q6H PRN PRN Reason: mild anxiety Last Admin: 02/07/25 22:05 Dose: 25 mg Lamotrigine (Lamotrigine 25 Mg Tablet) 25 mg PO DAILY [facility] Last Admin: 02/08/25 08:39 Dose: 25 mg Magnesium Hydroxide (Milk Of Magnesia 30 Ml Oral.Susp) 30 ml PO DAILY PRN PRN Reason: Constipation Naltrexone HCl (Naltrexone Hcl 50 Mg Tablet) 50 mg PO BEDTIME [facility] Last Admin: 02/07/25 20:32 Dose: 50 mg Nicotine (Nicotine 21 Mg Patch.Td24) 21 mg TRANSDERMA DAILY PRN PRN Reason: smoking cessation Last Admin: 02/08/25 08:41 Dose: 21 mg Nicotine Polacrilex (Nicotine Polacrilex 2 Mg Gum) 4 mg BUCCAL Q2H PRN PRN Reason: Nicotine Cravings Nicotine Polacrilex (Nicotine Polacrilex Lozenge 4 Mg Lozenge) 4 mg BUCCAL Q2H PRN PRN Reason: Nicotine Cravings Last Admin: 02/08/25 16:30 Dose: 4 mg Non-Formulary Medication (Bupropion Sr 150 Mg) 150 mg PO DAILY [facility] Last Admin: 02/08/25 08:36 Dose: 150 mg Trazodone HCl (Trazodone Hcl 100 Mg Tablet) 100 mg PO BEDTIME [facility] Last Admin: 02/07/25 20:33 Dose: 100 mg Allergies Allergies Allergy/AdvReac Type Severity Reaction Status Date / Time No Known Allergies Allergy Verified 02/05/25 20:12 Assessment & Plan Assessment & Plan (1) SHAUNA (generalized anxiety disorder): Status: Acute Code(s): F41.1 - Generalized anxiety disorder (2) Social anxiety disorder: Status: Acute Code(s): F40.10 - Social phobia, unspecified (3) Attention-deficit hyperactivity disorder, unspecified type: Status: Acute Code(s): F90.9 - Attention-deficit hyperactivity disorder, unspecified type (4) MDD (major depressive disorder), recurrent severe, without psychosis: Status: Acute Code(s): F33.2 - Major depressive disorder, recurrent severe without psychotic features (5) Alcohol use disorder: Status: Acute Code(s): F10.90 - Alcohol use, unspecified, uncomplicated Plan Patient is a 24-year-old male, recent college graduate with history of depression, ADHD, alcohol use disorder, who has been attending [facility] program, who presents for episode overwhelming anxiety, self loathing resulting in him punching himself in the face. Prior to partial day program, patient was very depressed, not eating, not attending to ADLs following painful break-up with his long-term girlfriend in October 2024. Patient reports that he had been doing much better at [facility] with medication regimen adjusted there. He was living at home and was doing well but got into an argument with his father; his father, trying to be helpful, challenged him on his motivation which patient found very triggering, feeling that his father was minimizing the extent of his struggles with depression anxiety; patient decided to go stay at his mom for a while but also got into an argument with her which resurfaced chronic feelings of self loathing, and that he is never good enough which began to dysregulated him; he then saw a picture of his ex-girlfriend which catapulted him into full-blown dysregulated emotions and he started punching himself in the face. Patient called his father who brought him to the hospital. Patient denies SI. Denies manic symptoms. Patient is asking for help further assessing medication and for an opportunity to emotionally stabilize so he can remain safe. Formulation/clinical reasoning: Campaign Consultant discussed case with Dr. Langley, reviewed medication Patient has stabilized on Abilify 5 mg b.i.d., Wellbutrin SR 100 mg daily (does not tolerate XL), Intuniv and now being started on Lamictal. Discussed Depakote which helped patient sees to Self-harm. Taken off citalopram as SSRIs causing sexual side effects. Hospital course: 02/08 Patient reports feeling better; says being on the unit, is giving him time to process his feelings and get himself under better control. Discussed medication management and patient agrees to remain on Abilify while Lamictal is being titrated; reviewed risks/side effects which patient understands. Discussed Depakote and patient feels that it should be restarted and scheduled rather than using as a p.r.n. for agitation. -patient denies any urges to self-harm and feels he is able to cope with his feelings. He remains in good behavioral and impulse control, is appropriate with peers and staff and engaged in treatment Plan: 3 day notice Q 15 minute checks Continue Abilify 5 mg b.i.d. Continue Wellbutrin SR 100 mg daily Continue Lamictal 25 mg Continue Intuniv Restart Depakote ER 500 mg q.h.s. Patient educated on: diagnosis, medication risk/benefits and therapeutic strategies Informed Consent: understands Reason for continued inpatient stay Substantial Risk for: stable for discharge and rapid decompensation Time Spent With Patient Time: Total time managing care of this patient today ____ minutes.
[2025-02-08 20:00] VITALS: BP 142/57; PULSE 68; TEMP 36.3; O2SAT 94
[2025-02-08] MEDS: Divalproex Sodium ER 500 MG TAB.ER.24H PO (22:34)
[2025-02-08 22:35] VITALS: BP 142/65
[2025-02-08] MEDS: traZODone HCL 100 MG TABLET PO (22:35)
[2025-02-08] MEDS: Naltrexone HCl 50 MG TABLET PO (22:36)
[2025-02-09 08:00] VITALS: BP 142/62; PULSE 54; TEMP 36.9; O2SAT 97
[2025-02-09] MEDS: guanFACINE HCl ER 1 MG TAB.ER.24H 3 MG PO (08:28)
[2025-02-09] MEDS: ARIPiprazole 5 MG TABLET PO (08:29)
[2025-02-09 08:30] VITALS: BP 142/62
[2025-02-09] MEDS: cloNIDine HCL 0.1 MG TABLET PO (08:30)
[2025-02-09] MEDS: lamoTRIgine 25 MG TABLET PO (08:30)
[2025-02-09] MEDS: BUPROPION 150 MG 150 EACH PO (08:31)
[2025-02-09] MEDS: Nicotine Polacrilex Lozenge 4 MG LOZENGE BUCCAL (08:31)
--- NOTE | 2025-02-09 09:23 | PM.PSYDC ---
DS: Providers Provider Date of Service: 02/09/25 Date of admission: 02/06/25 12:21 Date of discharge: 02/09/25 Primary care physician: None Physician Attending physician on admission: Reed Araiza Attending physician on discharge: Reed Araiza DS: Medications Discharge Medications Home Medications: Home Medications ?Medication ?Instructions ?Recorded ?Confirmed gabapentin 600 mg tablet 600 mg PO TID PRN Pain 02/05/25 02/05/25 Previous Rx's ?Medication ?Instructions ?Recorded aripiprazole 5 mg tablet (Abilify) 5 mg PO BID 30 days #60 tabs 02/09/25 bupropion HCl 150 mg tablet,12 hr 150 mg PO DAILY 30 days #30 tabs 02/09/25 sustained-release clonidine HCl 0.1 mg tablet 0.1 mg PO TID 30 days #90 tabs 02/09/25 divalproex 500 mg tablet,extended 500 mg PO BEDTIME 30 days #30 tabs 02/09/25 release 24 hr guanfacine 3 mg tablet,extended 3 mg PO QAM 30 days #30 tabs 02/09/25 release 24 hr lamotrigine 25 mg tablet (Lamictal) See Rx Instructions .Route 02/09/25 .COMPLEX 19 days #33 tabs naltrexone 50 mg tablet 50 mg PO BEDTIME 30 days #30 tabs 02/09/25 nicotine (polacrilex) 4 mg buccal 4 mg buccal Q2H PRN Nicotine 02/09/25 lozenge Cravings 30 days #108 ea trazodone 100 mg tablet 100 mg PO BEDTIME PRN insomnia 30 02/09/25 days #30 tabs Mental Status Exam Mental Status Exam Narrative: Pt is alert and oriented; behavior is cooperative, friendly and calm; patient is not in distress; dressed in casual attire with adequate hygiene and grooming; mood is described as good and affect congruent; eye contact appropriate; Speech is normal rate, volume and prosody and not pressured; no psychomotor agitation/retardation present; thought process is organized and goal directed; Thought content is on tx; otherwise pertinent to relevant topics and without any delusional content, paranoid ideations or grandiosity; denies any SI/HI. Denies AVH and there is no evidence of perceptual disturbance. Patients insight and judgment fair Data Data Completed and Pending Completed studies during hospitalization [Text1]: 02/05/25 02/05/25 02/06/25 21:04 21:05 15:36 WBC 9.2 RBC 5.27 Hgb 15.6 Hct 44.1 MCV 83.7 MCH 29.6 MCHC 35.4 RDW 13.1 Plt Count 203 MPV 10.0 Immature Gran % (Auto) 0.2 Neut % (Auto) 75.5 H Lymph % (Auto) 20.3 [place] % (Auto) 3.4 Eos % (Auto) 0.2 Baso % (Auto) 0.4 Lymph # (Auto) 1.9 [place] # (Auto) 0.3 Eos # (Auto) 0.0 Baso # (Auto) 0.0 Abs Immat Gran (auto) 0.02 Absolute Neuts (auto) 7.0 Absolute Nucleated RBC 0.000 Nucleated RBC % (auto) 0.0 Sodium 141 140 Potassium 3.8 3.9 Chloride 107 105 Carbon Dioxide 25 27 Anion Gap 13 12 BUN 9 8 L Creatinine 0.80 0.85 Estim Creat Clear Calc 162.2 152.7 Estimated GFR > 60 > 60 Random Glucose 120 H 90 Estimat Average Glucose Hemoglobin A1c % Calcium 9.7 10.0 Total Bilirubin 0.4 0.5 AST 23 25 ALT 21 21 Alkaline Phosphatase 57 57 Total Protein 7.3 7.5 Albumin 4.5 4.7 Triglycerides Cholesterol LDL Cholesterol, Calc HDL Cholesterol TSH Urine Color Yellow Urine Appearance Clear Urine pH 7.0 Ur Specific [place] 1.015 Urine Protein Negative Urine Glucose (UA) Negative Urine Ketones Trace Urine Blood Negative Urine Nitrite Negative Ur Leukocyte Esterase Negative Urine Opiates Screen Not Detected Ur Buprenorphine Scrn Not Detected Ur Oxycodone Screen Not Detected Urine Methadone Screen Not Detected Urine Fentanyl Screen Not Detected Ur Barbiturates Screen Not Detected Ur Phencyclidine Scrn Not Detected Ur Amphetamines Screen Not Detected U Benzodiazepines Scrn Not Detected Urine Cocaine Screen Not Detected U Marijuana (THC) Screen POSITIVE H Ethyl Alcohol < 10 02/07/25 08:24 WBC RBC Hgb Hct MCV MCH MCHC RDW Plt Count MPV Immature Gran % (Auto) Neut % (Auto) Lymph % (Auto) [place] % (Auto) Eos % (Auto) Baso % (Auto) Lymph # (Auto) [place] # (Auto) Eos # (Auto) Baso # (Auto) Abs Immat Gran (auto) Absolute Neuts (auto) Absolute Nucleated RBC Nucleated RBC % (auto) Sodium Potassium Chloride Carbon Dioxide Anion Gap BUN Creatinine Estim Creat Clear Calc Estimated GFR Random Glucose Estimat Average Glucose 97 Hemoglobin A1c % 5.0 Calcium Total Bilirubin AST ALT Alkaline Phosphatase Total Protein Albumin Triglycerides 106 Cholesterol 183 LDL Cholesterol, Calc 119 H HDL Cholesterol 43 TSH 1.83 Urine Color Urine Appearance Urine pH Ur Specific [place] Urine Protein Urine Glucose (UA) Urine Ketones Urine Blood Urine Nitrite Ur Leukocyte Esterase Urine Opiates Screen Ur Buprenorphine Scrn Ur Oxycodone Screen Urine Methadone Screen Urine Fentanyl Screen Ur Barbiturates Screen Ur Phencyclidine Scrn Ur Amphetamines Screen U Benzodiazepines Scrn Urine Cocaine Screen U Marijuana (THC) Screen Ethyl Alcohol DS: Summary Hospital Course Hospital Course: Patient is a 24-year-old male, recent college graduate with history of depression, ADHD, alcohol use disorder, who has been attending [facility] program, who presents for episode overwhelming anxiety, self loathing resulting in him punching himself in the face. Prior to partial day program, patient was very depressed, not eating, not attending to ADLs following painful break-up with his long-term girlfriend in October 2024. Patient reports that he had been doing much better at [facility] with medication regimen adjusted there. He was living at home and was doing well but got into an argument with his father; his father, trying to be helpful, challenged him on his motivation which patient found very triggering, feeling that his father was minimizing the extent of his struggles with depression anxiety; patient decided to go stay at his mom for a while but also got into an argument with her which resurfaced chronic feelings of self loathing, and that he is never good enough which began to dysregulated him; he then saw a picture of his ex-girlfriend which catapulted him into full-blown dysregulated emotions and he started punching himself in the face. Patient called his father who brought him to the hospital. Patient denies SI. Denies manic symptoms. Patient is asking for help further assessing medication and for an opportunity to emotionally stabilize so he can remain safe. Formulation/clinical reasoning: Administrator Pesticide discussed case with Dr. Langley, reviewed medication Patient has stabilized on Abilify 5 mg b.i.d., Wellbutrin SR 100 mg daily (does not tolerate XL), Intuniv and now being started on Lamictal. Discussed Depakote which helped patient sees to Self-harm. Taken off citalopram as SSRIs causing sexual side effects. Hospital course: / Patient reports feeling better; says being on the unit, is giving him time to process his feelings and get himself under better control. Discussed medication management and patient agrees to remain on Abilify while Lamictal is being titrated; reviewed risks/side effects which patient understands. Discussed Depakote and patient feels that it should be restarted and scheduled rather than using as a p.r.n. for agitation. -patient denies any urges to self-harm and feels he is able to cope with his feelings. He remains in good behavioral and impulse control, is appropriate with peers and staff and engaged in treatment Patient and credit underwriter engaged in CBT exercise looking at the origin of automatic thoughts; exercise resonated with patient who felt this helped him understand himself much better. Patient felt ready for discharge in his 3 day notice was coming due. He felt much more calm and better able to keep himself in control. Patient remained in good behavioral and impulse control throughout his time on the unit; he was, sleeping and eating well, optimistic and future oriented. Team discussed case further with Dr. Langley and patient will return to the partial day program the following day and continue treatment as an outpatient. Patient was not in imminent risk for harm to self or others and appropriate to return to the community for treatment. His request for discharge honored. Medication: Continued Abilify 5 mg b.i.d. Continued Wellbutrin SR 100 mg daily Continued Lamictal 25 mg Continued Intuniv Restarted Depakote ER 500 mg q.h.s. Time spent discussing smoking cessation with patient: 3 to 10 minutes Status at Discharge Functional status at discharge: independent ambulation Overall status at discharge: patient is back to baseline Time Spent with Patient Time attestation: Total time managing care of this patient today _40___ minutes. Time spent: Greater than 30 minutes Specific discharge activities: Met with patient; discussed with team; charting; prescriptions Discharge Plan Discharge Anticipated Discharge Date/Time: 02/09/25 11:30 Patient Disposition: Home, Self-Care Discharge Diagnosis: MDD, recurrent, severe without psychosis, in full remission Referrals: [facility] PHP/IOP [Other] - 02/10/25 1:00 pm (Intake is with Neyda ) Physician,None [Primary Care Provider] - 1 Week Discharge Medications: Continued naltrexone 50 mg Tablet 50 mg PO BEDTIME 30 Days Qty: 30 0RF Changed bupropion HCl 150 mg tablet sustained-release 12 hr 150 mg PO DAILY 30 Days Qty: 30 0RF lamotrigine [Lamictal] 25 mg Tablet See Rx Instructions .ROUTE .COMPLEX 19 Days Qty: 33 0RF Rx Instructions: Take 1 tab daily for 5 days, then take 1 tab BID Discontinued clonidine HCl 0.1 mg Tablet 0.1 mg PO BEDTIME PRN (Reason: Insomnia) aripiprazole [Abilify] 5 mg Tablet 5 mg PO BID guanfacine 3 mg Tablet Extended Release 24 Hr 3 mg PO QAM No Action aripiprazole 15 mg tablet 15 mg PO DAILY Qty: 20 0RF gabapentin 600 mg Tablet 600 mg PO TID Qty: 90 0RF trazodone 100 mg tablet 200 mg PO BEDTIME PRN (Reason: insomnia) Qty: 60 0RF olanzapine 15 mg tablet 7.5 - 15 mg PO BEDTIME PRN (Reason: acute agitation) Qty: 30 0RF Rx Instructions: as directed Discharge Orders: Discharge Order (Routine); Ordered 02/09/25 Ordered By: Reed Araiza Diet: Regular diet Activity on Discharge: As tolerated Stand Alone Forms: Patient Portal Discharge page, Community Support Print Language: Unable To Collect Care Plan Goals: Maintain mood and safe behaviors Take medications as prescribed Continue to pursue sobriety Practice coping skills Continue with outpatient providers and reach out to them as needed Health Concerns: Mood stability and behaviors Sobriety Plan of Treatment: Follow up with your PCP, psychiatric provider and other outpatient providers regarding above concerns Take medications as prescribed Assessment: Risk assessment at time of discharge:? Patient was interviewed prior to discharge and found to be fully oriented and without any SI or HI. Patient has improved insight and judgment and wants to continue treatment. Patient is not in imminent risk of harm to self or others and has a safety plan that includes presenting to the closest ER or calling 911 if feeling unsafe.? Patient has been observed closely by nursing and unit staff throughout admission; patient has not engaged in any behaviors that suggest dangerousness to self or others and has demonstrated appropriate behaviors and impulse control Discharge Date/Time: 02/09/25 11:18
[2025-02-09 11:34] LABS: Valproate 19.1 mcg/mL (50.0-100.0)
== END 2025-02-09 11:18 | disposition home or self-care (01) | DRG 885 ==
LOC: HO.ED 02-06 02:34 → HO.PM5 02-06 12:48
PROVIDERS: Nurse Practitioner Family; Admitting Provider Psychiatry & Neurology Psychiatry; Emergency Provider Emergency Medicine; Visit Provider Psychiatry & Neurology Psychiatry
DX: F33.2 Major depressive disorder, recurrent severe without psychotic features (principal); R45.851 Suicidal ideations; F41.1 Generalized anxiety disorder; F17.210 Nicotine dependence, cigarettes, uncomplicated; Z71.6 Tobacco abuse counseling; F40.10 Social phobia, unspecified; F90.9 Attention-deficit hyperactivity disorder, unspecified type; F10.90 Alcohol use, unspecified, uncomplicated; Z79.899 Other long term (current) drug therapy
CPT/HCPCS: 36415; 80053; 80061; 80164; 80307; 81003; 83036; 84443; 85025; 93005; 99285; S9485

== ENCOUNTER → 2025-02-06 10:35 | Outpatient (BNV) | payer OTHER, SELFPAY | PROVIDERS: Admitting Provider Psychiatry & Neurology Psychiatry; Emergency Provider Emergency Medicine; Visit Provider Internal Medicine | DX: I45.10 Unspecified right bundle-branch block (principal) | CPT/HCPCS: 93010 ==

== ENCOUNTER → 2025-02-06 12:21 | Outpatient (BNV) | payer OTHER, SELFPAY | PROVIDERS: Admitting Provider Psychiatry & Neurology Psychiatry; Emergency Provider Emergency Medicine; Visit Provider Psychiatry & Neurology Psychiatry | DX: F33.2 Major depressive disorder, recurrent severe without psychotic features (principal); F41.1 Generalized anxiety disorder; F40.10 Social phobia, unspecified; F90.9 Attention-deficit hyperactivity disorder, unspecified type; F10.90 Alcohol use, unspecified, uncomplicated | CPT/HCPCS: 99222; 99232; 99239 ==

== ENCOUNTER 2025-02-17 09:15 | Outpatient (RCR) | payer OTHER, SELFPAY ==
[2025-02-13 09:41] VITALS: BMI 23.7
--- NOTE | 2025-02-13 11:20 | P.HPPSP_ITS ---
HPI Date of Service: 02/13/25 Chief Complaint: anxiety Sources of Information: patient interviewed, chart reviewed and crisis/core team assessment reviewed HPI Narrative: Patient is medication-avoidant but has been very cooperative with treatment and plans to travel and possibly work outside the country this Fall. We agreed to transitioning to Lamictal as monotherapy (per patient preference) to improve [facility] compliance. Lamotrigine fairly inexpensive and patient could pay out of pocket if necessary, furthermore it is an older medication and is available in most [place] member countries. Past Psychiatric History: No IPLOC, PHP, respite, detox/rehab admissions SA: denies SIB: hitting/punching self in head Aggression: toward self but denies any aggressive behaviors toward others Says he was hitting himself in the head in front of his exGF which resulted in her breaking up w him Impulsive behaviors, heavy use of online porn, dx w ADHD as a teen Denies any legal hx Psychiatrist: Dr. Ramon Scruggs Therapist: none PCP: none Previous trials: mirtazapine, Seroquel, Seroquel XR, Abilify, Depakote (briefly), SSRI trial x1 during 1st year of college 4 yrs ago (cant recall which) I didn't take it seriously non-adherent, Adderall in the past CURRENT MEDICATIONS: Wellbutrin SR 150 mg qam Lamictal 25 mg daily naltrexone 50 mg qhs olanzapine 15 mg qhs gabapentin 600 mg TID PRN anxiety, sleep (has also been occasionally taking hydroxyzine 100 mg or trazodone 100 mg PRN for sleep) vitamin D2 01691 weekly vitamin B [facility] Medical History (Updated 02/17/25 @ 00:02 by Background Daemon) Nicotine dependence with nicotine-induced disorder Cannabis use disorder Cannabis use with cannabis-induced disorder Rupture of testis Family History: Mom: bipolar, depression Father's side of family with alcohol addiction, not in dad Denies any suicides in family Social History: Currently staying at home with parents in [facility], although he still maintains an apartment in [place]. He walked for graduation 6 weeks ago but says he technically has 3 credits to complete in order to officially complete his degree. Reports being diagnosed with ADHD (namely inattentive type), says he was a B student, sometimes Cs, but says cannabis use in high school really impacted his grades, and continues to underperform in college due to prioritizing alcohol use over his studies Diagnostics Vital Signs (24Hr): Vital Signs - 24 hr 02/13/25 11:47 Temperature 98.8 F Pulse Rate 80 Blood Pressure 130/82 BMI result Body Mass Index 23.7 Meds/Allergies Allergies Allergies Allergy/AdvReac Type Severity Reaction Status Date / Time No Known Allergies Allergy Verified 02/05/25 20:12 Assessment & Plan Assessment & Plan (1) MDD (major depressive disorder), recurrent severe, without psychosis: Status: Acute Code(s): F33.2 - Major depressive disorder, recurrent severe without psychotic features (2) Other specified persistent mood disorders: Status: Acute Code(s): F34.89 - Other specified persistent mood disorders Assessment and Plan: emotional dysregulation marker by high emotional reactivity, interpersonal hypersensitivity, rejection sensitivity some borderline personality traits on background of chronic SIMD and untreated ADHD no hx/px suggestive of hypomania/hypomanic episodes, so highly unlikely Bipolar spectrum (3) Impulse control disorder, unspecified: Status: Acute Code(s): F63.9 - Impulse disorder, unspecified (4) Attention-deficit hyperactivity disorder, unspecified type: Status: Acute Code(s): F90.9 - Attention-deficit hyperactivity disorder, unspecified type (5) Alcohol use disorder: Status: Acute Code(s): F10.90 - Alcohol use, unspecified, uncomplicated Assessment and Plan: relapse x1 on 02/10/25 otherwise avoiding etoh since 10/2024 (6) Cannabis use with cannabis-induced disorder: Status: Acute Code(s): F12.99 - Cannabis use, unspecified with unspecified cannabis-induced disorder Assessment and Plan: depression, cognitive effects (7) Nicotine dependence with nicotine-induced disorder: Status: Acute Code(s): F17.209 - Nicotine dependence, unspecified, with unspecified nicotine-induced disorders Plan Admit to IOP VS reviewed: afebrile, BP 130/82;?80 bpm continue olanzapine 15 mg qhs - for now with plan to transition off (will likely keep on as PRN acute agitation/SIB cycling) patient agrees to transition back to ABilify at higher dose 15-20 mg/d continue Wellbutrin SR 150 mg qam continue Lamictal 25 mg qd (due to titrate to 50 mg/d this week) will plan out titration schedule continue naltrexone 50 mg qhs to target compulsive SIB/self aggression continue gabapentin 600 mg TID prn anxiety, sleep discontinue trazodone 200 mg qhs (not helping and fearful of increasing dose due to potential side effects) has not found hydroxyzine adequate for sleep, and does not want to be taking olanzapine regularly will start ramelteon 8 mg qhs PRN sleep Routine lab work ordered as indicated EKG, routine for baseline QTc for medication considerations as indicated UDS as indicated MassPat reviewed Continue to monitor as per protocol Patient educated on: diagnosis, medication risk/benefits and substance abuse Informed Consent: understands Reason for continued partial hosp. stay Substantial Risk for: inability to function, rapid decompensation and med/psych decompensation Certification I certify that the patient needs IOP Services for a minimum of 9 hours per week of therapeutic services. I certify the patient is experiencing symptoms of such intensity that they are unable to be safely treated in a less intensive setting and would otherwise require?admission to a more intensive level of care. Time Spent With Patient Time: Total time managing care of this patient today __90__ minutes.
[2025-02-13 11:47] VITALS: BP 130/82; PULSE 80; TEMP 37.1
--- NOTE | 2025-02-13 14:05 | PC.ADMIT ---
Patient is a 24 year old single male who was discharged from [facility] and was a step down to IOP level of care however patient's mental health decompensated and was hospitalized at [facility] behavioral health unit as a result. Patient reportedly with increased depression at that time and had spoken to Dr Langley. Patient was placed on a sectioned 12 A as a result. According to records patient disclosed he was punching himself in the face for the past several days causing bruising on both sides of his face along with patient making statements that he can not do this anymore (denied any suicide plan). Patient is in his last year in college in [place]. He had a mental breakdown while there over a breakup with his girlfriend. At that time patient was consuming large amounts of alcohol. Patient reports he has since been sober from alcohol for the past 4 months. He does report using marijuana several times a day. Patient has one more class to complete in order to graduate and states he can do this class online. He is planning on going back to [place]. Patient stated, Going back to [place] in a few weeks see my friends before they graduate. She is preventing me from going and does not want anything to do with me . Patient stated by his ex girlfriend Just existing is preventing him to go back to clean out his room and see his friends at college. He reports he has until May on his lease from the college apartment that his father is paying. Patient reports inpatient hospitalization was helpful however stated he does not want to go back there however he stated it is good to know that if he needs to he can get help. Currently patient is alert and oriented x4. He is calm and cooperative. He presented with depressed mood and anxious affect. Denied SI, no HI. Patient stated he always is fighting off urges to punch himself. Last self harmed 02/11/25. He was given a copy of his safety plan if needed. He feels stuck in his life. Wants to learn how to effectively deal with his feelings in a more healthy way. He is currently living with his father. Stated he has a job opportunity in [place] if he wants it. Stated he is bored living in [facility] as his friends are all in [place].
--- NOTE | 2025-02-13 15:20 | PC.NURSE ---
Patient stated there have been some medication changes that were made after inpatient hospitalization by Dr. lundberg. Reviewed patient medications with Dr. Lundberg including patient stating he is no longer taking Depakote, Trazodone, Guanfacine, and Clonidine. She stated she is aware and to reconciled medications and omit the the aforementioned medications from his medication list.
--- NOTE | 2025-02-15 09:31 | HO.IOP ---
The patient was called by this clinician due to been absent and he reported to be unable to attend today due to not feeling well and oversleeping. No safety concerns were reported and the client reported that will be in the next two days of the week.
--- NOTE | 2025-02-16 14:10 | HO.IOP ---
Client's case has been opened and reviewed in team.
--- NOTE | 2025-02-17 10:43 | PC.NURSE ---
New PCP appointment with [facility] on September 06, 2026 at 11:00 am. Office Number [phone]. Address [address] [place] [address]. [facility] stated they will put you on their wait list for a sooner appointment.
--- NOTE | 2025-02-17 12:20 | P.PNPSP_ITS ---
Subjective Subjective Date of Service: 02/17/25 Reason For Visit: anxiety Diagnostics Vital Signs (24Hr): BMI result Body Mass Index 23.7 Assessment & Plan Reason for contiued partial hosp. stay Substantial Risk for: stable for discharge Certification I certify that the patient needs IOP Services for a minimum of 9 hours per week of therapeutic services. I certify the patient is experiencing symptoms of such intensity that they are unable to be safely treated in a less intensive setting and would otherwise require?admission to a more intensive level of care. Total time managing care of this patient today ____ minutes. Discharge Plan Discharge Attending provider: Allie Langley Additional Instructions: New PCP appointment with [facility] on September 06, 2026 at 11:00 am. Office Number [phone]. Address [address] [place] [address]. [facility] stated they will put you on their wait list for a sooner appointment. Medications: New ramelteon 8 mg tablet 8 mg PO BEDTIME PRN (Reason: sleep) Qty: 30 0RF aripiprazole 20 mg tablet 20 mg PO DAILY Qty: 30 0RF olanzapine 5 mg tablet 5 - 10 mg PO BEDTIME Qty: 30 0RF Rx Instructions: for acute agitation, sleep lamotrigine 100 mg tablet 100 mg PO DAILY Qty: 30 0RF Continued naltrexone 50 mg Tablet 50 mg PO BEDTIME 30 Days Qty: 30 0RF lamotrigine [Lamictal] 25 mg Tablet See Rx Instructions .ROUTE .COMPLEX 19 Days Qty: 33 0RF Rx Instructions: Take 1 tab daily for 5 days, then take 1 tab BID bupropion HCl 150 mg tablet sustained-release 12 hr 150 mg PO DAILY 30 Days Qty: 30 0RF Changed gabapentin 800 mg tablet 800 mg PO TID PRN (Reason: anxiety) Qty: 30 0RF Rx Instructions: =Dose Increase= Discontinued gabapentin 600 mg Tablet 600 mg PO TID PRN (Reason: Pain) nicotine (polacrilex) 4 mg Lozenge 4 mg buccal Q2H PRN (Reason: Nicotine Cravings) 30 Days Qty: 108 0RF divalproex 500 mg Tablet Extended Release 24 Hr 500 mg PO BEDTIME 30 Days Qty: 30 0RF clonidine HCl 0.1 mg Tablet 0.1 mg PO TID 30 Days Qty: 90 0RF aripiprazole [Abilify] 5 mg Tablet 5 mg PO BID 30 Days Qty: 60 0RF divalproex 500 mg Tablet,Delayed Release (Dr/Ec) 500 mg PO BEDTIME Rx Instructions: Patient stated he is no longer taking this medication. clonidine HCl 0.1 mg Tablet 0.1 mg PO Q4-6H PRN (Reason: anxiety, sleep) Rx Instructions: Patient no longer taking this medication. trazodone 100 mg Tablet 100 mg PO BEDTIME PRN (Reason: Insomnia) Rx Instructions: Patient no longer taking this medication. guanfacine 3 mg Tablet Extended Release 24 Hr 3 mg PO DAILY Rx Instructions: Patient no longer taking this medication. Stand Alone Forms: Patient Portal Discharge page Patient Education: Mood Disorders (ED), Mood Disorders (DC), ADHD in Adults (DC), Anxiety (ED), Anxiety (GEN) Print Language: Unable To Collect
--- NOTE | 2025-02-21 22:36 | P.EN_ITS ---
Event Note Date of Service: 02/21/25 Event Note: [facility] JOEL Maxwell [id number] Time Spent With Patient Time: Total time managing care of this patient today ____ minutes.
--- NOTE | 2025-02-21 22:36 | PM.EVENT ---
Event Note Date of Service: 02/21/25 Event Note: [facility] [place] Maxwell [id number] Time Spent With Patient Time: Total time managing care of this patient today ____ minutes.
--- NOTE | 2025-03-01 23:37 | PM.EVENT ---
Event Note Date of Service: 03/01/25 Event Note: recontinue medications: Abilify 20 mg qd Wellbutrin SR 150 mg qam Lamictal now at 75 mg qam naltrexone 50 mg qhs wants to discontinue gabapentin Buspirone Time Spent With Patient Time: Total time managing care of this patient today ____ minutes.
--- NOTE | 2025-03-07 15:55 | PM.EVENT ---
Event Note Date of Service: 03/13/25 Event Note: 03/07/25 stopped meds, talia, sent SXR 150 mg bid. is wiling to restart lamotrigine after missing only one day, current dose at 75 mg. he is aware of rash and asked. Time Spent With Patient Time: Total time managing care of this patient today ____ minutes.
== END 2025-02-17 23:59 | disposition home or self-care (01) ==
LOC: HO.IOP 09:15
PROVIDERS: Visit Provider Psychiatry & Neurology Psychiatry
DX: F33.2 Major depressive disorder, recurrent severe without psychotic features (principal); F34.89 Other specified persistent mood disorders; F63.9 Impulse disorder, unspecified; F90.9 Attention-deficit hyperactivity disorder, unspecified type; F10.90 Alcohol use, unspecified, uncomplicated; F12.99 Cannabis use, unspecified with unspecified cannabis-induced disorder; F17.209 Nicotine dependence, unspecified, with unspecified nicotine-induced disorders; Z79.899 Other long term (current) drug therapy
CPT/HCPCS: 90791; S9480

== ENCOUNTER 2025-06-10 10:50 | Outpatient (REF) | payer OTHER, SELFPAY ==
--- OUTSIDE RECORDS SUMMARY | 2025-06-10 10:53 | XMS_ITS | Patient Health Record ---
Author Organization [facility] Address [address] [place] [id number] Care Team Providers Care Assistant Tennis Coach Name Role Phone Ayanna Yang Primary Care Provider [phone] Reason For Referral No Information Encounters Encounter Location Date Provider Diagnosis [facility] [address] [place] [address] 10/26/2024 Ayanna Yang Plan Of Treatment No Information Insurance Providers Payer Name Payer Address Payer Phone Subscriber Number Group Number Insured Name Patient Relationship to Insured Coverage Start Date [facility]age End Date [facility] [address] [place] [address] [id number] Valeriy Esteves Self - patient is the insured
--- OUTSIDE RECORDS SUMMARY | 2025-06-10 10:53 | XMS_ITS | Clinical Summary ---
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 Active Active Problems Problem Noted Date Diagnosed Date Secondary hypertension 04/01/2021 Overview (09/19/2024): Last Assessment & Plan: I believe this is secondary to stress, Will recheck in 2 weeks Abnormal EKG 11/22/2020 Overview (09/19/2024): Last Assessment & Plan: He has an appointment with cardiology Sleep disturbance 11/22/2020 Overview (09/19/2024): Last Assessment & Plan: trazadone did not help. I think he needs treatment for depression and then we can work on this problem. Anxiety 07/03/2019 Overview (09/19/2024): Last Assessment & Plan: Worsening anxiety and depression. He relates this to starting the prozac. He has had some suicidal thoughts. We will have a suicide risk. We will decrease prozac to 10 mg for a week and then d/c . 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 No therapist in 2019 Last Assessment & Plan: Hi screening are all positive and he [...] 9 and ASQ all reviewed and elevated Social History Tobacco Use Types Packs/Day Years Used Date Smoking Tobacco: Every Day Cigarettes Smokeless Tobacco: Never Alcohol Use Standard Drinks/Week Comments Yes 0 (1 standard drink = 0.6 oz pur e alcohol) Education Answer Date Recorded Are you interested in more education? Not on esperanza e 03/06/2023 Are you concerned about learning? Not on file 03/06/2023 No 03/06/2023 No 03/06/2023 Digital Access Answer Date Recorded No 04/06/2023 No 04/06/2023 No 04/06/2023 Reliable internet access at home? Not on file 04/06/2023 Device with a working camera? Not on file Sex and Gender Information Value Date Recorded Sex Assigned at Male 10/27/2020 4:35 PM EST Legal Sex Male 8:46 PM EDT Gender Identity Male 10/27/2020 4:35 PM EST Sexual Orientation Straight 12/10/2020 4: 20 PM EST Last Filed Vital Signs Vital Sign Reading Time Taken Comments Blood Pressure 159/69 12/10/2020 4:19 PM EST Pulse 91 12/10/2020 4:19 PM EST Temperature 37.3 C (99.2 F) 12/10/2020 4:45 PM EST Respiratory Rate 14 12/10/2020 4:19 PM EST Oxygen Saturation 98% 12/10/2020 4:19 PM EST Inhaled Oxygen Concentration - - Weight 63.5 kg (140 lb) 12/10/2020 4:19 PM EST Height 182.9 cm (6') 12/10/2020 4:19 PM EST Body Mass Index 18.99 12/10/2020 4:19 PM EST Plan of Treatment Upcoming Encounters Date Type Department Care Team (Late st Contact Info) Description 09/06/2026 11:00 AM EDT [email or web address] [address] [place] [address] Jaziel Canseco, SUPERVISOR [employer] [address] [place] [address] [email or web address] Health Maintenance Due Date Last Done Comments BLOOD PRESSURE 2001 DEPRESSION SCREENING 2013 SMOKING Hx and SMOKELESS TOBACCO SCREENING 2014 HEPATITIS C SCREENING 2019 HIV ONE-TIME SCREENING (18-65 YEARS) 2019 PNEUMOCOCCAL VACCINES (0-49 years) (1 of 2 - PCV) 2020 05/23/2003, 2001, 2001, Additional history exists Adult Td,Tdap Booster 05/17/2023 05/17/2013 COVID-19 VACCINE ( - season) 2024 02/17/2021 HIB VACCINES Completed 11/22/2002, 11/10, 2001, Additional history exists HPV VACCINES Completed 06/17/2019, 02/2018, 10/07/2016 MENINGOCOCCAL VACCINES (ACWY) Completed 06/17/2019, 05/17/2013 HEPATITIS A VACCINES Completed 09/10/2020, 06/17/20 19 MENINGOCOCCAL VACCINES (B) Aged Out N o longer eligible based on patient's age to complete this topic Medical Devices Not on file Insurance [employer] PPO CIGNA PPO CIGNA PPO CIGNA PPO [employer]IG[employer] PPO CIGNA PPO Care Teams Grain Oilseed Or Pasture Farm Manager Relationship Specialty Start Date End Date Aleks Florence MD [address] [place] [address], [address] [place] [address] [email or web address] PCP - General Pediatrics 10/27/20 Joni Gil MD, MBBS [facility] [address] [place] [address] [email or web address] 04/17/19 Additional Source Comments The information contained in this document represents components of the legal health record. It is not the complete legal health record.[facility]
--- OUTSIDE RECORDS SUMMARY | 2025-06-10 10:53 | XMS_ITS | Patient Health Record ---
Author Organization [facility] Address [address] [place] [address] Care Team Providers Care Records Management Specialist Name Role Phone Debbie Quintana Unavailable [phone] Reason For Referral No Information Plan Of Treatment No Information Insurance Providers Payer Name Payer Address Payer Phone Subscriber Number Group Number Insured Name Patient Relationship to Insured Coverage Start Date Coverage End Date [employer] [address] [place] [id number] ANDRIA HINTON Self - patient is the insured
[2025-06-10 11:09] LABS: MANUAL DIFF FLAG NO
[2025-06-10 11:13] LABS: Hematocrit 48.9 % (42.0-52.0); Hemoglobin 17.1 g/dl (14.0-18.0); Imm Gran Abs Auto 0.02 X10*3/uL (0.00-0.03); Imm Gran Pct Auto 0.3 % (0.0-0.4); Lymphocytes Absolute Auto 1.7 X10*3/uL (1.2-4.9); Mean Corpuscular HGB Conc 35.0 g/dl (31.0-36.0); Mean Corpuscular Hemoglobin 29.4 pg (27.0-33.0); Mean Corpuscular Volume 84.2 fL (80.0-98.0); NRBC Abs Auto 0.000 X10*3/uL (0.0-0.012); NRBC Pct Auto 0.0 /100WBC (0.0-0.2); Platelet Count 250 X10*3/uL (160-400); Red Blood Count 5.81 X10*6/uL (4.60-5.80); White Blood Count 6.3 X10*3/uL (4.8-10.8)
[2025-06-10 11:51] LABS: Syphilis Screen Nonreactive (Nonreactive)
[2025-06-10 11:52] LABS: HBS Num1 0.96 mIU/mL (0-7.99); HBc Num1 0.06 S/CO (0.00-0.79); HBsAGNum1 0.35 S/CO (0.00-0.99); HIV Num 1 0.07 S/CO (0.00-0.99); Hepatitis B Surface Antigen Negative (Negative); ~HepC Num1 0.09 S/CO (0.00-0.79); ~Hepatitis B Surface Antibody NONREACTIVE (Nonreactive); ~Hepatitis C Antibody Nonreactive (Nonreactive)
[2025-06-10 11:57] LABS: Vitamin B12 286 pg/mL (200-900)
[2025-06-10 12:37] LABS: Alanine Aminotransferase 28 U/L (0-40); Albumin Level 4.9 g/dL (3.5-5.0); Alkaline Phosphatase 69 U/L (39-117); Anion Gap 15 (12-20); Aspartate Amino Transferase 28 U/L (5-37); Blood Urea Nitrogen 8 mg/dL (9-16); Calcium 9.9 mg/dL (8.4-10.2); Carbon Dioxide 27 mmol/L (22-29); Chloride 104 mmol/L (96-108); Cholesterol 163 mg/dL (<200); Estimated Glomerular Filt Rate > 60; HDL Cholesterol 60 mg/dL (>40); Magnesium 2.0 mg/dL (1.6-2.6); Potassium 4.1 mmol/L (3.3-5.1); Sodium 142 mmol/L (135-145); Total Protein 7.7 g/dL (6.5-8.0); Triglycerides 89 mg/dL (<150)
[2025-06-10 12:55] LABS: CT PCR Urine NOT DETECTED (Not Detect.); NG PCR Urine NOT DETECTED (Not Detect.)
== END 2025-06-10 10:51 | disposition home or self-care (01) ==
LOC: HO.LAB 10:50
PROVIDERS: Visit Provider Psychiatry & Neurology Psychiatry
DX: F33.2 Major depressive disorder, recurrent severe without psychotic features (principal); F41.1 Generalized anxiety disorder
CPT/HCPCS: 36415; 80053; 80061; 82607; 83735; 84425; 85025; 86704; 86706; 86780; 86803; 87340; 87389; 87491; 87591